=== PATIENT | male | born 1945 | race Asian ===

== ENCOUNTER 2020-09-26 10:48 | Outpatient (REF) | payer OTHER, SELFPAY ==
[2020-09-26 14:44] LABS: Alanine Aminotransferase 37 U/L (0-40); Albumin Level 4.5 g/dL (3.5-5.0); Alkaline Phosphatase 61 U/L (39-117); Anion Gap 16 (12-20); Aspartate Amino Transferase 32 U/L (5-37); Bilirubin Total 1.3 mg/dL (0.0-1.0); Blood Urea Nitrogen 15 mg/dL (9-16); Calcium 9.4 mg/dL (8.4-10.2); Carbon Dioxide 26 mmol/L (22-29); Chloride 103 mmol/L (96-108); Estimated Glomerular Filt Rate > 60; Glucose Random 107 mg/dL (60-115); Potassium 4.1 mmol/L (3.3-5.1); Sodium 141 mmol/L (135-145); Total Protein 8.3 g/dL (6.5-8.0)
== END 2020-09-26 10:49 | disposition home or self-care (01) ==
LOC: HO.HMGCLDS 10:48
PROVIDERS: PCP Internal Medicine; Visit Provider Internal Medicine
DX: I10 Essential (primary) hypertension (principal); E78.9 Disorder of lipoprotein metabolism, unspecified; R79.89 Other specified abnormal findings of blood chemistry; Z91.09 Other allergy status, other than to drugs and biological substances
CPT/HCPCS: 36415; 80053

== ENCOUNTER 2021-03-28 06:39 | Outpatient (REF) | payer OTHER, SELFPAY ==
[2021-03-28 11:23] LABS: MANUAL DIFF FLAG NO
[2021-03-28 11:31] LABS: Basophils Percent Auto 0.4 % (0-2); Eosinophils Absolute Auto 0.2 X10*3/uL (0.0-0.4); Eosinophils Percent Auto 2.7 % (0-4); Hematocrit 40.9 % (42-52); Hemoglobin 13.4 g/dl (14.0-18.0); Imm Gran Abs Auto 0.01 X10*3/uL (0.00-0.03); Imm Gran Pct Auto 0.1 % (0.0-0.4); Lymphocytes Absolute Auto 1.7 X10*3/uL (1.2-4.9); Mean Corpuscular HGB Conc 32.8 g/dl (31.0-36.0); Mean Corpuscular Hemoglobin 30.2 pg (27.0-33.0); Mean Corpuscular Volume 92.1 fL (80-98); Mean Platelet Volume 9.5 fL (9.4-12.4); Monocytes Absolute Auto 0.6 X10*3/uL (0.1-1.2); Monocytes Percent Auto 9.2 % (2-11); Neutrophils Absolute Auto 4.4 X10*3/uL (2.0-8.3); Neutrophils Percent Auto 62.6 % (45-73); Platelet Count 343 X10*3/uL (160-400); Red Blood Count 4.44 X10*6/uL (4.60-5.80); Red Cell Distribution Width 13.2 % (11.0-16.0)
[2021-03-28 11:55] LABS: Alanine Aminotransferase 17 U/L (0-40); Albumin Level 4.2 g/dL (3.5-5.0); Alkaline Phosphatase 53 U/L (39-117); Anion Gap 12 (12-20); Aspartate Amino Transferase 17 U/L (5-37); Blood Urea Nitrogen 18 mg/dL (9-16); Calcium 9.6 mg/dL (8.4-10.2); Carbon Dioxide 25 mmol/L (22-29); Chloride 105 mmol/L (96-108); Cholesterol 139 mg/dL; Estimated Glomerular Filt Rate > 60; Glucose Fasting 122 mg/dL (60-99); HDL Cholesterol 48 mg/dL; LDL Cholesterol Calculated 81 mg/dl; Potassium 4.2 mmol/L (3.3-5.1); Sodium 138 mmol/L (135-145); Total Protein 7.7 g/dL (6.5-8.0); Triglycerides 54 mg/dL
== END 2021-03-28 06:40 | disposition home or self-care (01) ==
LOC: HO.HMGCLDS 06:39
PROVIDERS: PCP Internal Medicine; Visit Provider Internal Medicine
DX: E78.9 Disorder of lipoprotein metabolism, unspecified (principal); I10 Essential (primary) hypertension; R79.89 Other specified abnormal findings of blood chemistry; Z91.09 Other allergy status, other than to drugs and biological substances
CPT/HCPCS: 36415; 80053; 80061; 85025

== ENCOUNTER 2022-01-22 15:20 | Outpatient (REF) | payer OTHER, SELFPAY ==
[2022-01-22 17:09] LABS: Alanine Aminotransferase 16 U/L (0-40); Albumin Level 4.2 g/dL (3.5-5.0); Alkaline Phosphatase 54 U/L (39-117); Anion Gap 10 (12-20); Aspartate Amino Transferase 21 U/L (5-37); Bilirubin Total 0.8 mg/dL (0.0-1.0); Blood Urea Nitrogen 28 mg/dL (9-16); Calcium 8.8 mg/dL (8.4-10.2); Carbon Dioxide 26 mmol/L (22-29); Chloride 104 mmol/L (96-108); Estimated Glomerular Filt Rate > 60; Glucose Random 91 mg/dL (60-115); Potassium 4.4 mmol/L (3.3-5.1); Sodium 136 mmol/L (135-145); Total Protein 7.7 g/dL (6.5-8.0)
== END 2022-01-22 15:21 | disposition home or self-care (01) ==
LOC: HO.HMGCLDS 15:20
PROVIDERS: PCP Internal Medicine; Visit Provider Internal Medicine
DX: I10 Essential (primary) hypertension (principal); E78.9 Disorder of lipoprotein metabolism, unspecified; Z91.09 Other allergy status, other than to drugs and biological substances
CPT/HCPCS: 36415; 80053

== ENCOUNTER 2022-08-02 08:29 | Outpatient (REF) | payer OTHER, SELFPAY ==
[2022-08-02 11:38] LABS: Alanine Aminotransferase 12 U/L (0-40); Albumin Level 4.2 g/dL (3.5-5.0); Alkaline Phosphatase 58 U/L (39-117); Anion Gap 11 (12-20); Aspartate Amino Transferase 15 U/L (5-37); Bilirubin Total 0.9 mg/dL (0.0-1.0); Blood Urea Nitrogen 22 mg/dL (9-16); Calcium 9.5 mg/dL (8.4-10.2); Carbon Dioxide 28 mmol/L (22-29); Chloride 103 mmol/L (96-108); Estimated Glomerular Filt Rate > 60; Glucose Random 162 mg/dL (60-115); Potassium 4.1 mmol/L (3.3-5.1); Sodium 138 mmol/L (135-145); Total Protein 7.8 g/dL (6.5-8.0)
[2022-08-04 07:54] LABS: LDL Cholesterol Direct 102 mg/dL (<100)
== END 2022-08-02 08:30 | disposition home or self-care (01) ==
LOC: HO.HMGCLDS 08:29
PROVIDERS: Visit Provider Internal Medicine
DX: E78.9 Disorder of lipoprotein metabolism, unspecified (principal); I10 Essential (primary) hypertension; R79.89 Other specified abnormal findings of blood chemistry; Z91.09 Other allergy status, other than to drugs and biological substances
CPT/HCPCS: 36415; 80053; 83721

== ENCOUNTER 2023-03-04 10:38 | Outpatient (AMB) | payer OTHER, SELFPAY ==
--- NOTE | 2023-03-04 10:39 | MHC.PC.OV ---
Vital Signs 03/04/23 10:43 Height 5 ft 7 in Weight 160 lb 8 oz BMI 25.1 BP 132/68 Blood Pressure Location Lt brachial Position Sitting Pulse 63 Pulse Source Pulse Oximeter Pulse Oximetry (%) 96 Oxygen Delivery Method Room Air Intake Visit Reasons: 3 Month follow up Allergies No Known Allergies Allergy (Verified 03/04/23 10:46) Medication List - Last Reconciled 03/04/23 by Lora Rojo MD aspirin 81 mg PO DAILY 90 days lisinopril 40 mg PO DAILY 90 days simvastatin 20 mg PO DAILY 90 days Tobacco use date assessed: 03/04/23 Fall risk assessment: No Falls in past year Last assessed Fall Risk: 03/04/23 Dental Screening Dental Screen Date: 03/04/23 Did you have a dental visit in the last 12 months?: No Did you have a dental problem in the last 6 months where you did not have access to dental care?: No Was dental information given to patient?: No HPI 3 Month follow up HPI Details Patient is 78 year-old male came in today for his regular follow-up appointment Patient is in his usual state health offer no new complaints Due for labs Hypertension: Blood pressure is stable, Continue lisinopril 40 mg Lipid disorder: Patient is on simvastatin 20 mg for lipid control. Patient is also on baby aspirin he is to continue that. Allergies are stable Follow-up 4 months [facility] Social History Housing: Apartment Patient Tobacco Use Status: Former Tobacco user Years Smoked: 1 yr e-Cigarette/Vaping Use: Never Used Current occupational status: retired Cognitive needs: No Hearing needs: No Vision needs: No Questionnaire PHQ-9 Over the last 2 weeks, how often have you been bothered by any of the following problems? 1. Little interest or pleasure in doing things: not at all 2. Feeling down, depressed, or hopeless: not at all 3. Trouble falling or staying asleep, or sleeping too much: not at all 4. Feeling tired or having little energy: not at all 5. Poor appetite or overeating: not at all 6. Feeling bad about yourself - or that you are a failure or have let yourself or your family down: not at all 7. Trouble concentrating on things, such as reading the newspaper or watching television: not at all 8. Moving or speaking so slowly that other people could have noticed. Or the opposite - being so fidgety or restless that you have been moving around a lot more than usual: not at all 9. Thoughts that you would be better off or of hurting yourself in some way: not at all Total score: 0 Depression Screening Interpretation: Negative 31202 - PHQ-9 Billing: Yes Source: Developed by Drs. Leandro Castillo, Mason Leon and colleagues, with an educational jonathan from [employer]. Thrive Questionnaire Date Thrive assessed: 03/04/23 I am a: Patient What is your living situation today?: I have a steady place to live Within the past 12 months, did the food you bought not last and you didn't have the money to get more?: Often true Within the past 12 months, did you worry whether your food would run out before you got money to buy more?: Often true Do you have trouble paying for medicines?: No Do you have trouble getting transportation to medical appointments?: No Do you have trouble paying your heating and electricity bill?: No Do you have trouble taking care of your child, family member or friend?: No Do you have trouble with day-to-day activities such as bathing, preparing meals, shopping, managing finances, etc.?: No Are you currently unemployed and looking for a job?: No Are you interested in more education?: No AUDIT C Alcohol Use Questionnaire (AUDIT-C) 1. How often do you have a drink containing alcohol?: Never 3. How often do you have six or more drinks on one occasion?: Never Total Score: 0 Score Reviewed/Action Taken: Yes ISAMAR-7 AMB Questionnaire ISAMAR-7 Date ISAMAR - 7 assessed: 01/22/22 Source: Developed by Drs. Leandro Castillo, Mason Leon and colleagues, with an educational jonathan from [employer]. Review of Systems Const Denies chills and Denies fever(s) ENT Denies epistaxis and Denies nasal discharge Card Denies chest pain Resp Denies chest congestion, Denies cough and Denies hemoptysis GI Denies diarrhea and Denies nausea Skin/Breast Denies rash Neuro Reports no additional complaints Psych Reports no additional complaints Endo Reports no additional complaints Physical exam (Primary Care) Vital Signs: Last Vital Signs Pulse 63 03/04/23 10:43 BP 132/68 03/04/23 10:43 Pulse Ox 96 03/04/23 10:43 Oxygen Delivery Method Room Air 03/04/23 10:43 BMI result Body Mass Index 25.1 Tobacco/Smoking Status: Tobacco use Status Tobacco use date assessed 03/04/23 03/04/23 10:48 Patient Tobacco Use Status Former Tobacco user 03/04/23 10:41 e-Cigarette/Vaping Use Never Used 03/04/23 10:41 PHQ-9: PHQ-9 Score PHQ-9: Total score 0 03/04/23 11:12 Depression Screening Interpretation: Negative Thrive Assessment: Date of Thrive Assessment Date Thrive assessed 03/04/23 03/04/23 11:07 Const General: cooperative, comfortable and no acute distress Orientation/consciousness: patient oriented x3 HENMT Head: Yes normocephalic Eyes General: appearance normal, both eyes and all related structures Neck Neck: Yes supple Resp Effort & Inspection: normal respiratory effort, no cough and no stridor Cardio Rhythm: regular rhythm Heart sounds: S1 normal heart sound present and S2 normal heart sound present Skin General skin exam: turgor normal Neuro General: patient oriented x3, tone normal and moves all extremities Extrem Right lower extremity: no edema Left lower extremity: no edema Assessment and Plan Assessment & Plan (1) Hypertension, essential: Code(s): I10 - Essential (primary) hypertension (2) Lipid disorder: Code(s): E78.9 - Disorder of lipoprotein metabolism, unspecified (3) Environmental allergies: Code(s): Z91.09 - Other allergy status, other than to drugs and biological substances (4) LFT elevation: Code(s): R79.89 - Other specified abnormal findings of blood chemistry Plan Patient is 78 year-old male came in today for his regular follow-up appointment Patient is in his usual state health offer no new complaints Due for labs Hypertension: Blood pressure is stable, Continue lisinopril 40 mg Lipid disorder: Patient is on simvastatin 20 mg for lipid control. Patient is also on baby aspirin he is to continue that. Allergies are stable Follow-up 4 months Orders: Orders Comprehensive Met. Panel Today E78.9 - Disorder of lipoprotein metabolism, unspecified, I10 - Essential (primary) hypertension, R79.89 - Other specified abnormal findings of blood chemistry, Z91.09 - Other allergy status, other than to drugs and biological substances Complete Blood Count Auto Diff Today E78.9 - Disorder of lipoprotein metabolism, unspecified, I10 - Essential (primary) hypertension, R79.89 - Other specified abnormal findings of blood chemistry, Z91.09 - Other allergy status, other than to drugs and biological substances LDL Cholesterol Direct Today E78.9 - Disorder of lipoprotein metabolism, unspecified Coding Level of Care Code Est Pt Level 3 (91890) Diagnoses Hypertension, essential I10 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 Environmental allergies Z91.09 LFT elevation R79.89
[2023-03-04 10:43] VITALS: BP 132/68; PULSE 63; O2SAT 96; BMI 25.1
== END 2023-03-04 12:12 | disposition home or self-care (01) ==
PROVIDERS: Visit Provider Internal Medicine
DX: I10 Essential (primary) hypertension (principal); E78.9 Disorder of lipoprotein metabolism, unspecified; Z91.09 Other allergy status, other than to drugs and biological substances; R79.89 Other specified abnormal findings of blood chemistry
CPT/HCPCS: 99213

== ENCOUNTER 2023-03-04 11:13 | Outpatient (REF) | payer OTHER, SELFPAY ==
[2023-03-04 13:48] LABS: MANUAL DIFF FLAG NO
[2023-03-04 13:51] LABS: Basophils Percent Auto 0.4 % (0-2); Eosinophils Absolute Auto 0.1 X10*3/uL (0.0-0.4); Eosinophils Percent Auto 1.8 % (0-4); Hematocrit 43.7 % (42.0-52.0); Hemoglobin 14.4 g/dl (14.0-18.0); Imm Gran Abs Auto 0.01 X10*3/uL (0.00-0.03); Imm Gran Pct Auto 0.1 % (0.0-0.4); Lymphocytes Percent Auto 29.3 % (20-40); Mean Corpuscular Hemoglobin 29.8 pg (27.0-33.0); Mean Corpuscular Volume 90.3 fL (80.0-98.0); Mean Platelet Volume 9.7 fL (9.4-12.4); Monocytes Absolute Auto 0.5 X10*3/uL (0.1-1.2); Monocytes Percent Auto 7.7 % (2-11); Neutrophils Absolute Auto 4.1 x10*3/uL (2.0-8.3); Neutrophils Percent Auto 60.7 % (45-73); Platelet Count 357 X10*3/uL (160-400); Red Blood Count 4.84 X10*6/uL (4.60-5.80); Red Cell Distribution Width 13.6 % (11.0-16.0); White Blood Count 6.7 X10*3/uL (4.8-10.8)
[2023-03-04 14:03] LABS: Alanine Aminotransferase 12 U/L (0-40); Albumin Level 4.4 g/dL (3.5-5.0); Alkaline Phosphatase 55 U/L (39-117); Anion Gap 11 (12-20); Aspartate Amino Transferase 20 U/L (5-37); Blood Urea Nitrogen 19 mg/dL (9-16); Calcium 9.7 mg/dL (8.4-10.2); Carbon Dioxide 29 mmol/L (22-29); Chloride 107 mmol/L (96-108); Estimated Glomerular Filt Rate > 60; Glucose Random 143 mg/dL (60-115); Potassium 4.9 mmol/L (3.3-5.1); Sodium 142 mmol/L (135-145); Total Protein 8.2 g/dL (6.5-8.0)
[2023-03-05 16:59] LABS: LDL Cholesterol Direct 84 mg/dL (<100)
== END 2023-03-04 11:14 | disposition home or self-care (01) ==
LOC: HO.HMGCLDS 11:13
PROVIDERS: PCP Internal Medicine; Visit Provider Internal Medicine
DX: I10 Essential (primary) hypertension (principal); E78.9 Disorder of lipoprotein metabolism, unspecified; R79.89 Other specified abnormal findings of blood chemistry; Z91.09 Other allergy status, other than to drugs and biological substances
CPT/HCPCS: 36415; 80053; 83721; 85025

== ENCOUNTER 2023-06-20 09:27 | Outpatient (AMB) | payer OTHER, SELFPAY ==
[2023-06-20 09:27] VITALS: BP 152/74; PULSE 69; O2SAT 96; BMI 25.7
--- NOTE | 2023-06-20 09:27 | A.OFFPC_ITS ---
Vital Signs 06/20/23 09:27 Height 5 ft 7 in Weight 164 lb BMI 25.7 BP 152/74 H Blood Pressure Location Rt brachial Position Sitting Pulse 69 Pulse Source Pulse Oximeter Pulse Oximetry (%) 96 Oxygen Delivery Method Room Air Intake Visit Reasons: 4 Month follow up Allergies No Known Allergies Allergy (Verified 06/20/23 09:30) Medication List - Last Reconciled 06/20/23 by Lora Rojo MD aspirin 81 mg PO DAILY 90 days lisinopril 40 mg PO DAILY 90 days simvastatin 20 mg PO DAILY 90 days Tobacco use date assessed: 06/20/23 Fall risk assessment: No Falls in past year Last assessed Fall Risk: 06/20/23 Dental Screening Dental Screen Date: 06/20/23 Did you have a dental visit in the last 12 months?: Yes Did you have a dental problem in the last 6 months where you did not have access to dental care?: No Was dental information given to patient?: Patient has dentist HPI 4 Month follow up HPI Details Patient is 78 year-old male came in today for his regular follow-up appointment His blood pressure is elevated today as patient was rushing to come Also tells me that he has been taking only 20 mg lisinopril as pharmacy did not give 40 mg I have sent a new script for the patient Lipid disorder: Patient is on simvastatin 20 mg for lipid control. Patient is also on baby aspirin he is to continue that. Allergies are stable Multiple joint osteoarthritis, requesting script for Tylenol which I have sent with the patient Labs to be done before next visit Follow-up 4 months [facility] Social History Housing: Apartment Patient Tobacco Use Status: Former Tobacco user Years Smoked: 1 yr e-Cigarette/Vaping Use: Never Used service: No Current occupational status: retired Cognitive needs: No Hearing needs: No Vision needs: No Questionnaire PHQ-9 Over the last 2 weeks, how often have you been bothered by any of the following problems? 1. Little interest or pleasure in doing things: not at all 2. Feeling down, depressed, or hopeless: not at all 3. Trouble falling or staying asleep, or sleeping too much: not at all 4. Feeling tired or having little energy: not at all 5. Poor appetite or overeating: not at all 6. Feeling bad about yourself - or that you are a failure or have let yourself or your family down: not at all 7. Trouble concentrating on things, such as reading the newspaper or watching television: not at all 8. Moving or speaking so slowly that other people could have noticed. Or the opposite - being so fidgety or restless that you have been moving around a lot more than usual: not at all 9. Thoughts that you would be better off or of hurting yourself in some way: not at all Total score: 0 Depression Screening Interpretation: Negative Depression Screening Done: Yes 57131 - PHQ-9 Billing: Yes Source: Developed by Drs. Leandro Castillo, Rosa Smith, Mason Banda and colleagues, with an educational jonathan from [employer]. Thrive Questionnaire Date Thrive assessed: 03/04/23 AUDIT C Alcohol Use Questionnaire (AUDIT-C) 1. How often do you have a drink containing alcohol?: Never 3. How often do you have six or more drinks on one occasion?: Never Total Score: 0 Score Reviewed/Action Taken: Yes ISAMAR-7 AMB Questionnaire ISAMAR-7 Date ISAMAR - 7 assessed: 06/20/23 Feeling nervous, anxious, or on edge: 0 = Not at all Not being able to stop or control worryin = Not at all Worrying too much about different things: 0 = Not at all Trouble relaxin = Not at all Being so restless that it is hard to sit still: 0 = Not at all Becoming easily annoyed or irritable: 0 = Not at all Feeling afraid as if something awful might happen: 0 = Not at all Total ISAMAR-7 score (0-4 normal; 5-9 mild; 10-14 moderate; 15-21 severe): 0 Source: Developed by Drs. Leandro Castillo, Rosa Smith, Mason Banda and colleagues, with an educational jonathan from [employer]. ISAMAR-7 Assessment Billing ISAMAR-7 Assessment Tool: ISAMAR-7 Assessment 14952 Review of Systems Const Denies chills and Denies fever(s) ENT Denies epistaxis and Denies nasal discharge Card Denies chest pain Resp Denies chest congestion, Denies cough and Denies hemoptysis GI Denies diarrhea and Denies nausea Skin/Breast Denies rash Neuro Reports no additional complaints Psych Reports no additional complaints Endo Reports no additional complaints Physical exam (Primary Care) Vital Signs: Last Vital Signs Pulse 69 06/20/23 09:27 BP 152/74 H 06/20/23 09:27 Pulse Ox 96 06/20/23 09:27 Oxygen Delivery Method Room Air 06/20/23 09:27 BMI result Body Mass Index 25.7 Tobacco/Smoking Status: Tobacco use Status Tobacco use date assessed 06/20/23 06/20/23 09:30 Patient Tobacco Use Status Former Tobacco user 06/20/23 09:30 e-Cigarette/Vaping Use Never Used 06/20/23 09:30 PHQ-9: PHQ-9 Score PHQ-9: Total score 0 06/20/23 09:46 Depression Screening Interpretation: Negative Thrive Assessment: Date of Thrive Assessment Date Thrive assessed 03/04/23 06/20/23 09:30 Const General: cooperative, comfortable and no acute distress Orientation/consciousness: patient oriented x3 HENMT Head: Yes normocephalic Eyes General: appearance normal, both eyes and all related structures Neck Neck: Yes supple Resp Effort & Inspection: normal respiratory effort, no cough and no stridor Cardio Rhythm: regular rhythm Heart sounds: S1 normal heart sound present and S2 normal heart sound present Skin General skin exam: turgor normal Neuro General: patient oriented x3, tone normal and moves all extremities Extrem Right lower extremity: no edema Left lower extremity: no edema Assessment and Plan Assessment & Plan (1) Hypertension, essential: Code(s): I10 - Essential (primary) hypertension (2) Lipid disorder: Code(s): E78.9 - Disorder of lipoprotein metabolism, unspecified (3) Environmental allergies: Code(s): Z91.09 - Other allergy status, other than to drugs and biological substances (4) LFT elevation: Code(s): R79.89 - Other specified abnormal findings of blood chemistry (5) Osteoarthritis involving multiple joints on both sides of body: Code(s): M15.9 - Polyosteoarthritis, unspecified Plan Patient is 78 year-old male came in today for his regular follow-up appointment His blood pressure is elevated today as patient was rushing to come Also tells me that he has been taking only 20 mg lisinopril as pharmacy did not give 40 mg I have sent a new script for the patient Lipid disorder: Patient is on simvastatin 20 mg for lipid control. Patient is also on baby aspirin he is to continue that. Allergies are stable Multiple joint osteoarthritis, requesting script for Tylenol which I have sent with the patient Labs to be done before next visit Follow-up 4 months Orders: Orders Complete Blood Count Auto Diff Today E78.9 - Disorder of lipoprotein metabolism, unspecified, I10 - Essential (primary) hypertension, M15.9 - Polyosteoarthritis, unspecified, R79.89 - Other specified abnormal findings of blood chemistry, Z91.09 - Other allergy status, other than to drugs and biological substances Comprehensive [place]. Panel Fast Today E78.9 - Disorder of lipoprotein metabolism, unspecified, I10 - Essential (primary) hypertension, M15.9 - Polyosteoarthritis, unspecified, R79.89 - Other specified abnormal findings of blood chemistry, Z91.09 - Other allergy status, other than to drugs and biological substances Lipid Panel Today E78.9 - Disorder of lipoprotein metabolism, unspecified, I10 - Essential (primary) hypertension, M15.9 - Polyosteoarthritis, unspecified, R79.89 - Other specified abnormal findings of blood chemistry, Z91.09 - Other allergy status, other than to drugs and biological substances Medications: New acetaminophen (Tylenol Extra Strength) 500 mg PO BID PRN 180 ea 1RF Joint pains 90 days Refilled lisinopril 40 mg PO DAILY 90 tabs 1RF 90 days aspirin 81 mg PO DAILY 90 tabs 3RF 90 days simvastatin 20 mg PO DAILY 90 days 90 tabs 1RF Coding Level of Care Code Est Pt Level 4 (58391) Diagnoses Hypertension, essential I10 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 Environmental allergies Z91.09 LFT elevation R79.89 Osteoarthritis involving multiple joints on both sides of body M15.9 Additional Codes ISAMAR-7 Assessment Billing - ISAMAR-7 Assessment Tool: ISAMAR-7 Assessment [id number] ([id number])
== END 2023-06-20 10:57 | disposition home or self-care (01) ==
LOC: HO.HMGC 09:27
PROVIDERS: PCP Internal Medicine; Visit Provider Internal Medicine
DX: I10 Essential (primary) hypertension (principal); E78.9 Disorder of lipoprotein metabolism, unspecified; Z91.09 Other allergy status, other than to drugs and biological substances; R79.89 Other specified abnormal findings of blood chemistry; M15.9 Polyosteoarthritis, unspecified
CPT/HCPCS: 99214

== ENCOUNTER 2024-01-09 09:32 | Outpatient (AMB) | payer OTHER, SELFPAY ==
--- NOTE | 2024-01-09 09:35 | MHC.PC.OV ---
Vital Signs 01/09/24 09:37 Height 5 ft 7 in Weight 158 lb BMI 24.7 BP 140/76 H Blood Pressure Location Rt brachial Position Sitting Pulse 66 Pulse Source Pulse Oximeter Pulse Oximetry (%) 95 Oxygen Delivery Method Room Air Intake Visit Reasons: F/Vernell MEDINA Allergies No Known Allergies Allergy (Verified 06/20/23 09:30) Medication List - Last Reconciled 01/09/24 by Lora Rojo MD acetaminophen (Tylenol Extra Strength) 500 mg PO BID PRN 90 days aspirin 81 mg PO DAILY 90 days lisinopril 40 mg PO DAILY 90 days simvastatin 20 mg PO DAILY 90 days Tobacco use date assessed: 01/09/24 Fall risk assessment: No Falls in past year Last assessed Fall Risk: 01/09/24 Dental Screening Dental Screen Date: 01/09/24 Did you have a dental visit in the last 12 months?: Yes Did you have a dental problem in the last 6 months where you did not have access to dental care?: No Was dental information given to patient?: Patient has dentist HPI F/U RADHA MEDINA HPI Details Patient is 78 year-old male came in today for his regular follow-up appointment Blood pressure has been running fine at 120 systolic Usually when patient comes to doctor's office his blood pressure is slightly elevated Taking 40 mg lisinopril Lipid disorder: Patient is on simvastatin 20 mg for lipid control. Patient is also on baby aspirin he is to continue that. Allergies are stable Multiple joint osteoarthritis, requesting script for Tylenol which I have sent with the patient Labs are due Follow-up 4 months [facility] Social History Housing: Apartment Patient Tobacco Use Status: Former Tobacco user Years Smoked: 1 yr e-Cigarette/Vaping Use: Never Used service: No Current occupational status: retired Cognitive needs: No Hearing needs: No Vision needs: No Questionnaire PHQ-9 Over the last 2 weeks, how often have you been bothered by any of the following problems? 1. Little interest or pleasure in doing things: not at all 2. Feeling down, depressed, or hopeless: not at all 3. Trouble falling or staying asleep, or sleeping too much: not at all 4. Feeling tired or having little energy: not at all 5. Poor appetite or overeating: not at all 6. Feeling bad about yourself - or that you are a failure or have let yourself or your family down: not at all 7. Trouble concentrating on things, such as reading the newspaper or watching television: not at all 8. Moving or speaking so slowly that other people could have noticed. Or the opposite - being so fidgety or restless that you have been moving around a lot more than usual: not at all 9. Thoughts that you would be better off or of hurting yourself in some way: not at all Total score: 0 Depression Screening Interpretation: Negative Depression Screening Done: Yes 51319 - PHQ-9 Billing: Yes Source: Developed by Drs. Leandro Castillo, Rosa Smith, Mason Banda and colleagues, with an educational jonathan from [employer]. Thrive Questionnaire Date Thrive assessed: 03/04/23 ISAMAR-7 AMB Questionnaire ISAMAR-7 Date ISAMAR - 7 assessed: 06/20/23 Source: Developed by Drs. Leandro Castillo, Rosa Smith, Mason Banda and colleagues, with an educational jonathan from [employer]. Review of Systems Const Denies chills and Denies fever(s) ENT Denies epistaxis and Denies nasal discharge Card Denies chest pain Resp Denies chest congestion, Denies cough and Denies hemoptysis GI Denies diarrhea and Denies nausea Skin/Breast Denies rash Neuro Reports no additional complaints Psych Reports no additional complaints Endo Reports no additional complaints Physical exam (Primary Care) Vital Signs: Last Vital Signs Pulse 66 01/09/24 09:37 BP 140/76 H 01/09/24 09:37 Pulse Ox 95 01/09/24 09:37 Oxygen Delivery Method Room Air 01/09/24 09:37 BMI result Body Mass Index 24.7 Tobacco/Smoking Status: Tobacco use Status Tobacco use date assessed 01/09/24 01/09/24 09:38 Patient Tobacco Use Status Former Tobacco user 01/09/24 09:37 e-Cigarette/Vaping Use Never Used 01/09/24 09:37 Depression Screening Interpretation: Negative Thrive Assessment: Date of Thrive Assessment Date Thrive assessed 03/04/23 01/09/24 09:37 Const General: cooperative, comfortable and no acute distress Orientation/consciousness: patient oriented x3 HENMT Head: Yes normocephalic Eyes General: appearance normal, both eyes and all related structures Neck Neck: Yes supple Resp Effort & Inspection: normal respiratory effort, no cough and no stridor Cardio Rhythm: regular rhythm Heart sounds: S1 normal heart sound present and S2 normal heart sound present Skin General skin exam: turgor normal Neuro General: patient oriented x3, tone normal and moves all extremities Extrem Right lower extremity: no edema Left lower extremity: no edema Assessment and Plan Assessment & Plan (1) Hypertension, essential: Code(s): I10 - Essential (primary) hypertension (2) Lipid disorder: Code(s): E78.9 - Disorder of lipoprotein metabolism, unspecified (3) Environmental allergies: Code(s): Z91.09 - Other allergy status, other than to drugs and biological substances (4) LFT elevation: Code(s): R79.89 - Other specified abnormal findings of blood chemistry (5) Osteoarthritis involving multiple joints on both sides of body: Code(s): M15.9 - Polyosteoarthritis, unspecified Plan Patient is 78 year-old male came in today for his regular follow-up appointment Blood pressure has been running fine at 120 systolic Usually when patient comes to doctor's office his blood pressure is slightly elevated Taking 40 mg lisinopril Lipid disorder: Patient is on simvastatin 20 mg for lipid control. Patient is also on baby aspirin he is to continue that. Allergies are stable Multiple joint osteoarthritis, requesting script for Tylenol which I have sent with the patient Labs are due Follow-up 4 months Orders: Orders Complete Blood Count Auto Diff Today E78.9 - Disorder of lipoprotein metabolism, unspecified, I10 - Essential (primary) hypertension, M15.9 - Polyosteoarthritis, unspecified, R79.89 - Other specified abnormal findings of blood chemistry, Z91.09 - Other allergy status, other than to drugs and biological substances Complete Blood Count Auto Diff 4 Months E78.9 - Disorder of lipoprotein metabolism, unspecified, I10 - Essential (primary) hypertension, M15.9 - Polyosteoarthritis, unspecified, R79.89 - Other specified abnormal findings of blood chemistry, Z91.09 - Other allergy status, other than to drugs and biological substances Comprehensive [place]. Panel Fast Today E78.9 - Disorder of lipoprotein metabolism, unspecified, I10 - Essential (primary) hypertension, M15.9 - Polyosteoarthritis, unspecified, R79.89 - Other specified abnormal findings of blood chemistry, Z91.09 - Other allergy status, other than to drugs and biological substances Lipid Panel Today E78.9 - Disorder of lipoprotein metabolism, unspecified, I10 - Essential (primary) hypertension, M15.9 - Polyosteoarthritis, unspecified, R79.89 - Other specified abnormal findings of blood chemistry, Z91.09 - Other allergy status, other than to drugs and biological substances Comprehensive [place]. Panel Fast 4 Months E78.9 - Disorder of lipoprotein metabolism, unspecified, I10 - Essential (primary) hypertension, M15.9 - Polyosteoarthritis, unspecified, R79.89 - Other specified abnormal findings of blood chemistry, Z91.09 - Other allergy status, other than to drugs and biological substances Lipid Panel 4 Months E78.9 - Disorder of lipoprotein metabolism, unspecified, I10 - Essential (primary) hypertension, M15.9 - Polyosteoarthritis, unspecified, R79.89 - Other specified abnormal findings of blood chemistry, Z91.09 - Other allergy status, other than to drugs and biological substances Coding Level of Care Code Est Pt Level 4 (18534) Complex EM visit Add On G2211 Diagnoses Hypertension, essential I10 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 Environmental allergies Z91.09 LFT elevation R79.89 Osteoarthritis involving multiple joints on both sides of body M15.9
[2024-01-09 09:37] VITALS: BP 140/76; PULSE 66; O2SAT 95; BMI 24.7
== END 2024-01-09 10:07 | disposition home or self-care (01) ==
PROVIDERS: PCP Internal Medicine; Visit Provider Internal Medicine
DX: I10 Essential (primary) hypertension (principal); E78.9 Disorder of lipoprotein metabolism, unspecified; Z91.09 Other allergy status, other than to drugs and biological substances; R79.89 Other specified abnormal findings of blood chemistry; M15.9 Polyosteoarthritis, unspecified
CPT/HCPCS: 99214; G2211

== ENCOUNTER 2024-01-10 10:05 | Outpatient (REF) | payer OTHER, SELFPAY ==
[2024-01-10 10:57] LABS: MANUAL DIFF FLAG NO
[2024-01-10 11:02] LABS: Basophils Percent Auto 0.5 % (0-2); Eosinophils Absolute Auto 0.2 X10*3/uL (0.0-0.4); Eosinophils Percent Auto 2.3 % (0-4); Hematocrit 41.6 % (42.0-52.0); Hemoglobin 14.3 g/dl (14.0-18.0); Imm Gran Abs Auto 0.02 X10*3/uL (0.00-0.03); Imm Gran Pct Auto 0.3 % (0.0-0.4); Lymphocytes Absolute Auto 2.2 X10*3/uL (1.2-4.9); Lymphocytes Percent Auto 32.6 % (20-40); Mean Corpuscular HGB Conc 34.4 g/dl (31.0-36.0); Mean Corpuscular Hemoglobin 30.2 pg (27.0-33.0); Mean Corpuscular Volume 87.8 fL (80.0-98.0); Mean Platelet Volume 9.4 fL (9.4-12.4); Monocytes Absolute Auto 0.7 X10*3/uL (0.1-1.2); Neutrophils Absolute Auto 3.6 x10*3/uL (2.0-8.3); Neutrophils Percent Auto 54.3 % (45-73); Platelet Count 327 X10*3/uL (160-400); Red Blood Count 4.74 X10*6/uL (4.60-5.80); Red Cell Distribution Width 13.3 % (11.0-16.0); White Blood Count 6.6 X10*3/uL (4.8-10.8)
[2024-01-10 11:21] LABS: Alanine Aminotransferase 21 U/L (0-40); Albumin Level 4.2 g/dL (3.5-5.0); Alkaline Phosphatase 53 U/L (39-117); Anion Gap 12 (12-20); Aspartate Amino Transferase 25 U/L (5-37); Bilirubin Total 0.9 mg/dL (0.0-1.0); Blood Urea Nitrogen 17 mg/dL (9-16); Calcium 9.3 mg/dL (8.4-10.2); Carbon Dioxide 28 mmol/L (22-29); Chloride 105 mmol/L (96-108); Cholesterol 162 mg/dL (<200); Estimated Glomerular Filt Rate > 60; Glucose Fasting 117 mg/dL (60-99); HDL Cholesterol 50 mg/dL (>40); LDL Cholesterol Calculated 87 mg/dL (<100); Sodium 141 mmol/L (135-145); Total Protein 7.8 g/dL (6.5-8.0); Triglycerides 126 mg/dL (<150)
== END 2024-01-10 10:06 | disposition home or self-care (01) ==
LOC: HO.HMGCLDS 10:05
PROVIDERS: PCP Internal Medicine; Visit Provider Internal Medicine
DX: I10 Essential (primary) hypertension (principal); E78.9 Disorder of lipoprotein metabolism, unspecified; Z91.09 Other allergy status, other than to drugs and biological substances; R79.89 Other specified abnormal findings of blood chemistry; M15.9 Polyosteoarthritis, unspecified
CPT/HCPCS: 36415; 80053; 80061; 85025

== ENCOUNTER 2024-05-28 08:08 | Outpatient (AMB) | payer OTHER, SELFPAY ==
[2024-05-28 08:13] VITALS: BP 134/78; PULSE 61; O2SAT 93; BMI 25.5
--- NOTE | 2024-05-28 08:13 | MHC.PC.OV ---
Vital Signs 05/28/24 08:13 Height 5 ft 7 in Weight 163 lb 2 oz BMI 25.5 BP 134/78 Blood Pressure Location Rt brachial Position Sitting Pulse 61 Pulse Source Pulse Oximeter Pulse Oximetry (%) 93 Oxygen Delivery Method Room Air Intake Visit Reasons: PE Allergies No Known Allergies Allergy (Verified 05/28/24 08:17) Medication List - Last Reconciled 05/28/24 by Lora Rojo MD acetaminophen (Tylenol Extra Strength) 500 mg PO BID PRN 90 days aspirin 81 mg PO DAILY 90 days lisinopril 40 mg PO DAILY 90 days simvastatin 20 mg PO DAILY 90 days Tobacco use date assessed: 05/28/24 Fall risk assessment: No Falls in past year Last assessed Fall Risk: 05/28/24 Dental Screening Dental Screen Date: 05/28/24 Did you have a dental visit in the last 12 months?: Yes Did you have a dental problem in the last 6 months where you did not have access to dental care?: No Was dental information given to patient?: Patient has dentist HPI PE HPI Details 79-year-old male with history of elevated blood glucose presenting for a wellness and preventative care visit. The patient is at risk for developing cataracts and has a scheduled repeat colonoscopy that was due in 2022. Elevated fasting blood sugar recorded earlier in January necessitates further evaluation for diabetes risk. The patient also presents with hearing impairment which requires assessment. Overall health maintenance and preventative screenings are the primary focus, given the age-related risks and previous screenings. Problem list: Risk of Cataracts - Colorectal Cancer Screening due - Elevated Blood Glucose Levels - Hearing Impairment Blurring of vision The patient is advised of the potential for cataract development and the importance of regular eye examinations. An eye examination has been recommended to monitor for any signs of cataracts to ensure timely intervention if required., patient has been declining to do an eye exam all this years. But today he agrees. Referral created. Hyperglycemia noted on previous labs The patient's fasting glucose level was elevated as of January 2023. To assess risk for diabetes, a repeat fasting glucose test and HbA1c test are ordered to monitor glycemic control and to determine any interventions needed. Colorectal screening. The result of the 2017 colonoscopy was noted as clean. A repeat colonoscopy, which was due in 2022, is essential to continue screening for colorectal cancer, given his age. It is encouraged for completion to rule out any developments since the previous screening. however patient does not want to pursue that. Hearing impairment The patient exhibits signs of hearing impairment. A hearing test is arranged to assess the severity of impairment. The patient is made aware that hearing aids may be needed if the test results indicate significant hearing loss. Potential coverage of aids by insurance was discussed. Blood pressure is stable Medication list reviewed refills sent Patient failed tandem walk Follow-up 4 months [facility] Social History Housing: Apartment Patient Tobacco Use Status: Former Tobacco user Years Smoked: 1 yr e-Cigarette/Vaping Use: Never Used service: No Current occupational status: retired Cognitive needs: No Hearing needs: No Vision needs: No Questionnaire PHQ-9 Over the last 2 weeks, how often have you been bothered by any of the following problems? 1. Little interest or pleasure in doing things: not at all 2. Feeling down, depressed, or hopeless: not at all 3. Trouble falling or staying asleep, or sleeping too much: not at all 4. Feeling tired or having little energy: not at all 5. Poor appetite or overeating: not at all 6. Feeling bad about yourself - or that you are a failure or have let yourself or your family down: not at all 7. Trouble concentrating on things, such as reading the newspaper or watching television: not at all 8. Moving or speaking so slowly that other people could have noticed. Or the opposite - being so fidgety or restless that you have been moving around a lot more than usual: not at all 9. Thoughts that you would be better off or of hurting yourself in some way: not at all Total score: 0 Depression Screening Interpretation: Negative Depression Screening Done: Yes 19887 - PHQ-9 Billing: Yes Source: Developed by Drs. Leandro Castillo, Rosa Smith, Mason Banda and colleagues, with an educational jonathan from [employer]. Thrive Questionnaire Date Thrive assessed: 05/28/24 I am a: Patient What is your living situation today?: I have a steady place to live Within the past 12 months, did the food you bought not last and you didn't have the money to get more?: Never true Within the past 12 months, did you worry whether your food would run out before you got money to buy more?: Never true Do you have trouble paying for medicines?: No Do you have trouble getting transportation to medical appointments?: No Do you have trouble paying your heating and electricity bill?: No Do you have trouble taking care of your child, family member or friend?: No Do you have trouble with day-to-day activities such as bathing, preparing meals, shopping, managing finances, etc.?: No Are you currently unemployed and looking for a job?: No Are you interested in more education?: No Please select the resources that you would like help with: None Currently or been in a relationship where the following occur: No concerns reported THRIVE Score: 0 AUDIT C Alcohol Use Questionnaire (AUDIT-C) 1. How often do you have a drink containing alcohol?: Never 3. How often do you have six or more drinks on one occasion?: Never Total Score: 0 Score Reviewed/Action Taken: Yes ISAMAR-7 AMB Questionnaire ISAMAR-7 Date ISAMAR - 7 assessed: 05/28/24 Feeling nervous, anxious, or on edge: 0 = Not at all Not being able to stop or control worryin = Not at all Worrying too much about different things: 0 = Not at all Trouble relaxin = Not at all Being so restless that it is hard to sit still: 0 = Not at all Becoming easily annoyed or irritable: 0 = Not at all Feeling afraid as if something awful might happen: 0 = Not at all Total ISAMAR-7 score (0-4 normal; 5-9 mild; 10-14 moderate; 15-21 severe): 0 Source: Developed by Drs. Leandro Castillo, Rosa Smith, Mason Banda and colleagues, with an educational jonathan from [employer]. ISAMAR-7 Assessment Billing ISAMAR-7 Assessment Tool: ISAMAR-7 Assessment 42599 Review of Systems Const Denies chills, Denies fever(s) and Denies headache(s) ENT Denies headache(s), Denies nasal discharge, Denies nasal obstruction, Denies odynophagia and Denies sinus pain Card Denies chest pain at rest and Denies chest pain with activity Resp Denies cough and Denies hemoptysis GI Denies diarrhea, Denies odynophagia, Denies vomiting and Denies hematemesis Reports as per HPI Musc Denies abnormal gait Skin/Breast Reports as per HPI Neuro Denies Neuro-related abnormal movements, Denies Abnormal speech present, Denies abnormal gait, Denies headache(s) and Denies Sensory deficit (Neuro) Psych Denies mood swings and Denies paranoia Endo Reports as per HPI Diaz/Lymph Reports as per HPI Aller/Immun Reports as per HPI Physical exam (Primary Care) Vital Signs: Last Vital Signs Pulse 61 05/28/24 08:13 BP 134/78 05/28/24 08:13 Pulse Ox 93 05/28/24 08:13 Oxygen Delivery Method Room Air 05/28/24 08:13 BMI result Body Mass Index 25.5 Tobacco/Smoking Status: Tobacco use Status Tobacco use date assessed 05/28/24 05/28/24 08:18 Patient Tobacco Use Status Former Tobacco user 05/28/24 08:14 e-Cigarette/Vaping Use Never Used 05/28/24 08:14 PHQ-9: PHQ-9 Score PHQ-9: Total score 0 05/28/24 08:18 Depression Screening Interpretation: Negative Thrive Assessment: Date of Thrive Assessment Date Thrive assessed 05/28/24 05/28/24 08:18 Currently or been in a relationship where the following occur: No concerns reported Const General: cooperative, comfortable and no acute distress Orientation/consciousness: patient oriented x3 HENMT Head: Yes normocephalic and Yes atraumatic Eyes General: appearance normal, both eyes and all related structures Pupils: Equal, round and reactive pupils present EOM: EOMs intact bilaterally Neck Neck: Yes supple and No lymphadenopathy Thyroid: Thyroid normal Resp Effort & Inspection: normal respiratory effort and able to speak in complete sentences Auscultation: clear to auscultation bilaterally Cardio Heart sounds: S1 normal heart sound present and S2 normal heart sound present GI Palpation (GI): Soft to palpation and nontender Auscultation: normal bowel sounds General: Yes no CVA tenderness Back/Spine/Pelvis Back: no CVA tenderness Skin General skin exam: elasticity normal and turgor normal Neuro General: patient oriented x3 and gait normal Cranial nerves: Yes Equal, round and reactive pupils present Speech: No Abnormal speech present Sensory Exam: No Sensory deficit (Neuro) Coordination: Romberg test negative Extrem General: Yes normal exam except as noted and No edema Coding Level of Care Code Est Pt Level 3 (17297) Est Pt Prev Care >65y(42950) Diagnoses Encounter for general adult medical examination with abnormal findings Z00.01 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 Hypertension, essential I10 Environmental allergies Z91.09 LFT elevation R79.89 Pre-diabetes R73.03 Blurring of vision H53.8 Hearing difficulty, unspecified laterality H91.90 Laterality: unspecified laterality Additional Codes ISAMAR-7 Assessment Billing - ISAMAR-7 Assessment Tool: ISAMAR-7 Assessment 17935 ([id number]) PHQ-9 - 03604 - PHQ-9 Billing: Yes ([id number]) Assessment & Plan Assessment & Plan (1) Encounter for general adult medical examination with abnormal findings: Code(s): Z00.01 - Encounter for general adult medical examination with abnormal findings Category: Medical (2) Lipid disorder: Code(s): E78.9 - Disorder of lipoprotein metabolism, unspecified Category: Medical (3) Hypertension, essential: Code(s): I10 - Essential (primary) hypertension Category: Medical (4) Environmental allergies: Code(s): Z91.09 - Other allergy status, other than to drugs and biological substances Category: Medical (5) LFT elevation: Code(s): R79.89 - Other specified abnormal findings of blood chemistry Category: Medical (6) Pre-diabetes: Code(s): R73.03 - Prediabetes Category: Medical (7) Blurring of vision: Code(s): H53.8 - Other visual disturbances Category: Medical (8) Difficulty hearing: Code(s): H91.90 - Unspecified hearing loss, unspecified ear Category: Medical Qualifiers: Laterality: unspecified laterality Qualified Code(s): H91.90 - Unspecified hearing loss, unspecified ear Plan 79-year-old male with history of elevated blood glucose presenting for a wellness and preventative care visit. The patient is at risk for developing cataracts and has a scheduled repeat colonoscopy that was due in 2022. Elevated fasting blood sugar recorded earlier in January necessitates further evaluation for diabetes risk. The patient also presents with hearing impairment which requires assessment. Overall health maintenance and preventative screenings are the primary focus, given the age-related risks and previous screenings. Problem list: Risk of Cataracts - Colorectal Cancer Screening due - Elevated Blood Glucose Levels - Hearing Impairment Blurring of vision The patient is advised of the potential for cataract development and the importance of regular eye examinations. An eye examination has been recommended to monitor for any signs of cataracts to ensure timely intervention if required., patient has been declining to do an eye exam all this years. But today he agrees. Referral created. Hyperglycemia noted on previous labs The patient's fasting glucose level was elevated as of January 2023. To assess risk for diabetes, a repeat fasting glucose test and HbA1c test are ordered to monitor glycemic control and to determine any interventions needed. Colorectal screening. The result of the 2018 colonoscopy was noted as clean. A repeat colonoscopy, which was due in 2022, is essential to continue screening for colorectal cancer, given his age. It is encouraged for completion to rule out any developments since the previous screening. however patient does not want to pursue that. Hearing impairment The patient exhibits signs of hearing impairment. A hearing test is arranged to assess the severity of impairment. The patient is made aware that hearing aids may be needed if the test results indicate significant hearing loss. Potential coverage of aids by insurance was discussed. Blood pressure is stable Medication list reviewed refills sent Patient failed tandem walk Follow-up 4 months Orders: Orders Complete Blood Count Auto Diff Today E78.9 - Disorder of lipoprotein metabolism, unspecified, I10 - Essential (primary) hypertension, R73.03 - Prediabetes, R79.89 - Other specified abnormal findings of blood chemistry, Z00.01 - Encounter for general adult medical examination with abnormal findings, Z91.09 - Other allergy status, other than to drugs and biological substances Lipid Panel Today E78.9 - Disorder of lipoprotein metabolism, unspecified, I10 - Essential (primary) hypertension, R73.03 - Prediabetes, R79.89 - Other specified abnormal findings of blood chemistry, Z00.01 - Encounter for general adult medical examination with abnormal findings, Z91.09 - Other allergy status, other than to drugs and biological substances Comprehensive [place]. Panel Fast Today E78.9 - Disorder of lipoprotein metabolism, unspecified, I10 - Essential (primary) hypertension, R73.03 - Prediabetes, R79.89 - Other specified abnormal findings of blood chemistry, Z00.01 - Encounter for general adult medical examination with abnormal findings, Z91.09 - Other allergy status, other than to drugs and biological substances Hemoglobin A1c Today E78.9 - Disorder of lipoprotein metabolism, unspecified, I10 - Essential (primary) hypertension, R73.03 - Prediabetes, R79.89 - Other specified abnormal findings of blood chemistry, Z00.01 - Encounter for general adult medical examination with abnormal findings, Z91.09 - Other allergy status, other than to drugs and biological substances Referrals Ophthalmology Referral H53.8 - Other visual disturbances Audiology Referral H91.90 - Unspecified hearing loss, unspecified ear Medications: Refilled acetaminophen (Tylenol Extra Strength) 500 mg PO BID PRN 180 ea 1RF Joint pains 90 days simvastatin 20 mg PO DAILY 90 tabs 1RF 90 days aspirin 81 mg PO DAILY 90 tabs 3RF 90 days lisinopril 40 mg PO DAILY 90 tabs 1RF 90 days
== END 2024-05-28 09:00 | disposition home or self-care (01) ==
PROVIDERS: PCP Internal Medicine; Visit Provider Internal Medicine
DX: Z00.00 Encounter for general adult medical examination without abnormal findings (principal); E78.9 Disorder of lipoprotein metabolism, unspecified; I10 Essential (primary) hypertension; Z91.09 Other allergy status, other than to drugs and biological substances; R73.03 Prediabetes; H53.8 Other visual disturbances; H91.93 Unspecified hearing loss, bilateral

== ENCOUNTER 2024-05-28 08:08 | Outpatient (REF) | payer OTHER, SELFPAY ==
[2024-05-28 10:11] LABS: MANUAL DIFF FLAG NO
[2024-05-28 10:20] LABS: Basophils Percent Auto 0.5 % (0-2); Eosinophils Absolute Auto 0.1 X10*3/uL (0.0-0.4); Eosinophils Percent Auto 1.7 % (0-4); Hematocrit 42.9 % (42.0-52.0); Imm Gran Abs Auto 0.01 X10*3/uL (0.00-0.03); Imm Gran Pct Auto 0.2 % (0.0-0.4); Lymphocytes Absolute Auto 2.2 X10*3/uL (1.2-4.9); Lymphocytes Percent Auto 34.7 % (20-40); Mean Corpuscular Hemoglobin 30.7 pg (27.0-33.0); Mean Corpuscular Volume 87.9 fL (80.0-98.0); Mean Platelet Volume 9.1 fL (9.4-12.4); Monocytes Absolute Auto 0.7 X10*3/uL (0.1-1.2); Monocytes Percent Auto 10.5 % (2-11); Neutrophils Absolute Auto 3.4 x10*3/uL (2.0-8.3); Neutrophils Percent Auto 52.4 % (45-73); Platelet Count 349 X10*3/uL (160-400); Red Blood Count 4.88 X10*6/uL (4.60-5.80); Red Cell Distribution Width 12.5 % (11.0-16.0); White Blood Count 6.5 X10*3/uL (4.8-10.8)
[2024-05-28 10:38] LABS: Estimated Average Glucose 126 mg/dL; Hemoglobin A1C 160.2875 umol/L
[2024-05-28 10:43] LABS: Alanine Aminotransferase 20 U/L (0-40); Albumin Level 4.3 g/dL (3.5-5.0); Alkaline Phosphatase 62 U/L (39-117); Anion Gap 10 (12-20); Aspartate Amino Transferase 27 U/L (5-37); Bilirubin Total 0.6 mg/dL (0.0-1.0); Blood Urea Nitrogen 19 mg/dL (9-16); Calcium 9.9 mg/dL (8.4-10.2); Carbon Dioxide 30 mmol/L (22-29); Chloride 104 mmol/L (96-108); Cholesterol 151 mg/dL (<200); Estimated Glomerular Filt Rate > 60; Glucose Fasting 114 mg/dL (60-99); HDL Cholesterol 36 mg/dL (>40); LDL Cholesterol Calculated 73 mg/dL (<100); Potassium 3.9 mmol/L (3.3-5.1); Sodium 140 mmol/L (135-145); Total Protein 8.3 g/dL (6.5-8.0); Triglycerides 213 mg/dL (<150)
== END 2024-05-28 08:09 | disposition home or self-care (01) ==
LOC: HO.HMGCLDS 08:08
PROVIDERS: PCP Internal Medicine; Visit Provider Internal Medicine
DX: Z00.01 Encounter for general adult medical examination with abnormal findings (principal); E78.9 Disorder of lipoprotein metabolism, unspecified; I10 Essential (primary) hypertension; Z91.09 Other allergy status, other than to drugs and biological substances; R79.89 Other specified abnormal findings of blood chemistry; R73.03 Prediabetes
CPT/HCPCS: 36415; 80053; 80061; 83036; 85025; 96127

== ENCOUNTER 2024-09-29 09:35 | Outpatient (AMB) | payer OTHER, SELFPAY ==
[2024-09-29 09:30] VITALS: BP 144/82; PULSE 66; RESP 16; TEMP 36.6; O2SAT 97; BMI 26.2
--- NOTE | 2024-09-29 09:30 | A.OFFPC_ITS ---
Vital Signs 09/29/24 09:30 Height 5 ft 7 in Weight 167 lb 2 oz BMI 26.2 BP 144/82 H Blood Pressure Location Lt brachial Position Sitting Respiration 16 Pulse 66 Pulse Source Pulse Oximeter Temp 98 F Temp Source Oral Pulse Oximetry (%) 97 Oxygen Delivery Method Room Air Intake Visit Reasons: 4 months follow up Allergies No Known Allergies Allergy (Verified 05/28/24 08:17) Medication List - Last Reconciled 09/29/24 by Lora Rojo MD acetaminophen (Tylenol Extra Strength) 500 mg PO BID PRN 90 days aspirin 81 mg PO DAILY 90 days lisinopril 40 mg PO DAILY 90 days simvastatin 20 mg PO DAILY 90 days Tobacco use date assessed: 09/29/24 Fall risk assessment: No Falls in past year Last assessed Fall Risk: 09/29/24 Dental Screening Dental Screen Date: 09/29/24 Did you have a dental visit in the last 12 months?: Yes Did you have a dental problem in the last 6 months where you did not have access to dental care?: No Was dental information given to patient?: Patient has dentist HPI 4 months follow up HPI Details Patient is a 79-year-old gentleman came in with his friend who is helping with the translation Pressure is slightly elevated today He has developed a synovial cyst right wrist dorsal aspect Patient uses his hands a lot doing different shots at home The cyst is not painful and he has no restriction of his wrist movement Patient declined to see an orthopedic for management Labs were done in May reviewed again New set of lab order placed to be done fasting He is taking lisinopril 40 mg for blood pressure Simvastatin 20 mg for lipid control and aspirin daily Patient will return in three-month for follow-up appointment [facility] Social History Housing: Apartment Patient Tobacco Use Status: Former Tobacco user Years Smoked: 1 yr e-Cigarette/Vaping Use: Never Used service: No Current occupational status: retired Cognitive needs: No Hearing needs: No Vision needs: No Questionnaire PHQ-9 Over the last 2 weeks, how often have you been bothered by any of the following problems? 46356 - PHQ-9 Billing: Patient declined-do not bill Source: Developed by Drs. Leandro Castillo, Rosa Smith, Mason Banda and colleagues, with an educational jonathan from [employer]. Thrive Questionnaire Date Thrive assessed: 09/29/24 I am a: Patient What is your living situation today?: I have a steady place to live Within the past 12 months, did the food you bought not last and you didn't have the money to get more?: Never true Within the past 12 months, did you worry whether your food would run out before you got money to buy more?: Never true Do you have trouble paying for medicines?: No Do you have trouble getting transportation to medical appointments?: No Do you have trouble paying your heating and electricity bill?: No Do you have trouble taking care of your child, family member or friend?: No Do you have trouble with day-to-day activities such as bathing, preparing meals, shopping, managing finances, etc.?: No Are you currently unemployed and looking for a job?: No Are you interested in more education?: No Please select the resources that you would like help with: None Currently or been in a relationship where the following occur: No concerns reported THRIVE Score: 0 AUDIT C Alcohol Use Questionnaire (AUDIT-C) 1. How often do you have a drink containing alcohol?: Never 3. How often do you have six or more drinks on one occasion?: Never Total Score: 0 Score Reviewed/Action Taken: Yes ISAMAR-7 AMB Questionnaire ISAMAR-7 Date ISAMAR - 7 assessed: 09/29/24 Feeling nervous, anxious, or on edge: 0 = Not at all Not being able to stop or control worryin = Not at all Worrying too much about different things: 0 = Not at all Trouble relaxin = Not at all Being so restless that it is hard to sit still: 0 = Not at all Becoming easily annoyed or irritable: 0 = Not at all Feeling afraid as if something awful might happen: 0 = Not at all Total ISAMAR-7 score (0-4 normal; 5-9 mild; 10-14 moderate; 15-21 severe): 0 Source: Developed by Drs. Leandro Castillo, Rosa Smith, Mason Banda and colleagues, with an educational jonathan from [employer]. ISAMAR-7 Assessment Billing ISAMAR-7 Assessment Tool: ISAMAR-7 Assessment 54633 Physical exam (Primary Care) Vital Signs: Last Vital Signs Temp 98 F 09/29/24 09:30 Pulse 66 09/29/24 09:30 Resp 16 09/29/24 09:30 BP 144/82 H 09/29/24 09:30 Pulse Ox 97 09/29/24 09:30 Oxygen Delivery Method Room Air 09/29/24 09:30 BMI result Body Mass Index 26.2 Tobacco/Smoking Status: Tobacco use Status Tobacco use date assessed 09/29/24 09/29/24 09:38 Patient Tobacco Use Status Former Tobacco user 09/29/24 09:32 e-Cigarette/Vaping Use Never Used 09/29/24 09:32 Thrive Assessment: Date of Thrive Assessment Date Thrive assessed 09/29/24 09/29/24 09:38 Currently or been in a relationship where the following occur: No concerns reported Coding Level of Care Code Est Pt Level 4 (26058) Diagnoses 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 Hypertension, essential I10 Environmental allergies Z91.09 Pre-diabetes R73.03 Synovial cyst of right wrist M71.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 Additional Codes ISAMAR-7 Assessment Billing - ISAMAR-7 Assessment Tool: ISAMAR-7 Assessment 20454 ([id number]) Assessment & Plan Assessment & Plan (1) Lipid disorder: Code(s): E78.9 - Disorder of lipoprotein metabolism, unspecified Category: Medical (2) Hypertension, essential: Code(s): I10 - Essential (primary) hypertension Category: Medical (3) Environmental allergies: Code(s): Z91.09 - Other allergy status, other than to drugs and biological substances Category: Medical (4) Pre-diabetes: Code(s): R73.03 - Prediabetes Category: Medical (5) Synovial cyst of right wrist: Code(s): M71.331 - Other bursal cyst, right wrist Category: Medical Plan Patient is a 79-year-old gentleman came in with his friend who is helping with the translation Pressure is slightly elevated today He has developed a synovial cyst right wrist dorsal aspect Patient uses his hands a lot doing different shots at home The cyst is not painful and he has no restriction of his wrist movement Patient declined to see an orthopedic for management Labs were done in May reviewed again New set of lab order placed to be done fasting He is taking lisinopril 40 mg for blood pressure Simvastatin 20 mg for lipid control and aspirin daily Allergies are stable Patient will return in three-month for follow-up appointment Orders: Orders Vitamin D 25-OH (D2 and D3) Today E78.9 - Disorder of lipoprotein metabolism, unspecified, I10 - Essential (primary) hypertension, M71.331 - Other bursal cyst, right wrist, R73.03 - Prediabetes, Z91.09 - Other allergy status, other than to drugs and biological substances Vitamin B12 Today E78.9 - Disorder of lipoprotein metabolism, unspecified, I10 - Essential (primary) hypertension, M71.331 - Other bursal cyst, right wrist, R73.03 - Prediabetes, Z91.09 - Other allergy status, other than to drugs and biological substances Complete Blood Count Auto Diff Today E78.9 - Disorder of lipoprotein metabolism, unspecified, I10 - Essential (primary) hypertension, M71.331 - Other bursal cyst, right wrist, R73.03 - Prediabetes, Z91.09 - Other allergy status, other than to drugs and biological substances Comprehensive [place]. Panel Fast Today E78.9 - Disorder of lipoprotein metabolism, unspecified, I10 - Essential (primary) hypertension, M71.331 - Other bursal cyst, right wrist, R73.03 - Prediabetes, Z91.09 - Other allergy status, other than to drugs and biological substances Lipid Panel Today E78.9 - Disorder of lipoprotein metabolism, unspecified, I10 - Essential (primary) hypertension, M71.331 - Other bursal cyst, right wrist, R73.03 - Prediabetes, Z91.09 - Other allergy status, other than to drugs and biological substances Hemoglobin A1c Today E78.9 - Disorder of lipoprotein metabolism, unspecified, I10 - Essential (primary) hypertension, M71.331 - Other bursal cyst, right wrist, R73.03 - Prediabetes, Z91.09 - Other allergy status, other than to drugs and biological substances
--- OUTSIDE RECORDS SUMMARY | 2024-09-29 10:42 | XMS_ITS | Encounter Summary ---
Author Organization [employer] Address [address] [place] [address] Care Team Providers Care Supervisor Home Energy Consultant Name Role Phone Unavailable Primary Care Provider Unavailabl e Encounter Details Date Type Department Care Team (Latest Contact Info) Description 05/24/2019 Abstract C CONVERSIONS Dental, Provider, DDS Social History Tobacco Use Types Packs/Day Years Used Date Smoking Tobacco: Never Assessed Sex and Gender Information Value Date Recorded Sex Assigned at Male 05/06/2022 10:35 AM EDT Legal Sex Male 10:35 AM EDT Gender Identity Male 05/06/2022 10:35 AM EDT Sexual Orientation Choose not to disclose 2021 10:35 AM EDT documented as of this encounter Plan of Treatment Not on file documented as of this encounter Visit Diagnoses Not on filedocumented in this encounter
--- OUTSIDE RECORDS SUMMARY | 2024-09-29 10:42 | XMS_ITS | Clinical Summary ---
Author Organization [employer] Address [address] [facility] [address] [place] [address] Care Team Providers Care Sales Incentive Analyst Name Role Phone Unavailable Primary Care Provider Unavailabl e Social History Tobacco Use Types Packs/Day Years Used Date Smoking Tobacco: Never Assessed Sex and Gender Information Value Date Recorded Sex Assigned at Male 05/06/2022 10:35 AM EDT Legal Sex Male 10:35 AM EDT Gender Identity Male 05/06/2022 10:35 AM EDT Sexual Orientation Choose not to disclose 2021 10:35 AM EDT Last Filed Vital Signs Vital Sign Reading Time Taken Comments Blood Pressure 130/70 06/16/2020 12:12 AM EST Pulse - - Temperature - - Respiratory Rate - - Oxygen Saturation - - Inhaled Oxygen Concentration - - Weight - - Height - - Body Mass Index - - Plan of Treatment Health Maintenance Due Date Last Done Comments Depression Screening 1945 Lipid Panel 1945 Alcohol/Substance Use Screening 1957 Tobacco Screening 1957 DTaP/Tdap/Td Vaccines (1 - Tdap) 02/26/1964 Pneumococcal Vaccine: 50+ Ye ars (1 of 1 - PCV) 1995 Zoster Vaccines (1 of 2) 1995 RSV Patients and Pa tients Aged 60 years or older (1 - 1-dose 75+ series) 02/26/2020 COVID-19 Vaccine ( - 2023-2 5 season) 2024 Influenza Vaccine (#1) 2024 HIB Vaccines Aged Out No longer eligi ble based on patient's age to complete this topic HPV Vaccines Aged Out No longer eligi ble based on patient's age to complete this topic Hepatitis A Vaccines Aged Out No long er eligible based on patient's age to complete this topic Hepatitis B Vaccines Aged Out No long er eligible based on patient's age to complete this topic IPV Vaccines Aged Out No longer eligi ble based on patient's age to complete this topic Meningococcal Vaccine Aged Out No gabby sam eligible based on patient's age to complete this topic RSV under 20 months Aged Out No longe r eligible based on patient's age to complete this topic Rotavirus Vaccines Aged Out No longer eligible based on patient's age to complete this topic
--- OUTSIDE RECORDS SUMMARY | 2024-09-29 10:42 | XMS_ITS | Encounter Summary ---
Author Organization [employer] Address [address] [facility] [address] [place] [address] Care Team Providers Care Automotive Professional Name Role Phone Unavailable Primary Care Provider Unavailabl e Encounter Details Date Type Department Care Team (Latest Contact Info) Description 10/12/2018 Abstract [facility] CONVERSIONS Dental, Provider, DDS Social History Tobacco [...]
--- OUTSIDE RECORDS SUMMARY | 2024-09-29 10:42 | XMS_ITS | Encounter Summary ---
Author Organization [employer] Address [address] [facility] [address] [place] [address] Care Team Providers Care Nut Chopper Name Role Phone Unavailable Primary Care Provider Unavailabl e Encounter Details Date Type Department Care Team (Latest Contact Info) Description 06/08/2020 Abstract C CONVERSIONS Dental, Provider, DDS Social [...]
== END 2024-09-29 09:53 | disposition home or self-care (01) ==
LOC: HO.HMCC 09:35
PROVIDERS: PCP Internal Medicine; Visit Provider Internal Medicine
DX: E78.9 Disorder of lipoprotein metabolism, unspecified (principal); I10 Essential (primary) hypertension; Z91.09 Other allergy status, other than to drugs and biological substances; R73.03 Prediabetes; M71.331 Other bursal cyst, right wrist

== ENCOUNTER → 2024-09-29 09:35 | Outpatient (BNVA) | payer OTHER, SELFPAY | PROVIDERS: PCP Internal Medicine; Visit Provider Internal Medicine | DX: E78.9 Disorder of lipoprotein metabolism, unspecified (principal); I10 Essential (primary) hypertension; R73.03 Prediabetes; M71.331 Other bursal cyst, right wrist; Z91.09 Other allergy status, other than to drugs and biological substances; Z79.899 Other long term (current) drug therapy | CPT/HCPCS: 96127 ==

== ENCOUNTER 2024-10-28 08:04 | Outpatient (REF) | payer OTHER, SELFPAY ==
--- OUTSIDE RECORDS SUMMARY | 2024-10-28 08:15 | XMS_ITS | Encounter Summary ---
Author Organization [employer] Address [address] [facility] 7[address] [place] [address] Care Team Providers Care Instructor Flying Name Role Phone Unavailable Primary Care Provider [...]
--- OUTSIDE RECORDS SUMMARY | 2024-10-28 08:15 | XMS_ITS | Encounter Summary ---
Author Organization [employer] Address [address] [facility] [address] [place] [address] Care Team Providers Care Activities Coordinator Name Role Phone Unavailable Primary Care Provider [...]
--- OUTSIDE RECORDS SUMMARY | 2024-10-28 08:15 | XMS_ITS | Clinical Summary ---
Author Organization [employer] Address [address] [facility] [address] [place] [address] Care Team Providers Care Automation Engineering Technician Name Role Phone Unavailable Primary Care Provider [...]
--- OUTSIDE RECORDS SUMMARY | 2024-10-28 08:15 | XMS_ITS | Encounter Summary ---
Author Organization [employer] Address [address] [facility] [address] [place] [address] Care Team Providers Care Medical Technologist Clinical Name Role Phone Unavailable Primary Care Provider [...]
[2024-10-28 10:16] LABS: MANUAL DIFF FLAG NO
[2024-10-28 10:28] LABS: Estimated Average Glucose 128 mg/dL; Hemoglobin A1C 172.8868 umol/L; Hemoglobin A1c % 6.1 % (<6.0); Total Hemoglobin (HGBA1C) 3968.2296 umol/L
[2024-10-28 10:29] LABS: Basophils Percent Auto 0.5 % (0-2); Eosinophils Absolute Auto 0.2 X10*3/uL (0.0-0.4); Eosinophils Percent Auto 2.5 % (0-4); Hematocrit 44.1 % (42.0-52.0); Imm Gran Abs Auto 0.03 X10*3/uL (0.00-0.03); Imm Gran Pct Auto 0.5 % (0.0-0.4); Lymphocytes Absolute Auto 2.6 X10*3/uL (1.2-4.9); Lymphocytes Percent Auto 40.1 % (20-40); Mean Corpuscular Hemoglobin 29.6 pg (27.0-33.0); Mean Platelet Volume 9.4 fL (9.4-12.4); Monocytes Absolute Auto 0.6 X10*3/uL (0.1-1.2); Monocytes Percent Auto 8.8 % (2-11); Neutrophils Absolute Auto 3.1 x10*3/uL (2.0-8.3); Neutrophils Percent Auto 47.6 % (45-73); Platelet Count 320 X10*3/uL (160-400); Red Blood Count 5.07 X10*6/uL (4.60-5.80); Red Cell Distribution Width 13.1 % (11.0-16.0); White Blood Count 6.5 X10*3/uL (4.8-10.8)
[2024-10-28 11:11] LABS: Alanine Aminotransferase 55 U/L (0-40); Albumin Level 4.3 g/dL (3.5-5.0); Alkaline Phosphatase 56 U/L (39-117); Anion Gap 10 (12-20); Aspartate Amino Transferase 50 U/L (5-37); Bilirubin Total 0.8 mg/dL (0.0-1.0); Blood Urea Nitrogen 14 mg/dL (9-16); Calcium 9.6 mg/dL (8.4-10.2); Carbon Dioxide 29 mmol/L (22-29); Chloride 104 mmol/L (96-108); Cholesterol 159 mg/dL (<200); Estimated Glomerular Filt Rate > 60; Glucose Fasting 101 mg/dL (60-99); HDL Cholesterol 47 mg/dL (>40); LDL Cholesterol Calculated 88 mg/dL (<100); Sodium 139 mmol/L (135-145); Total Protein 8.1 g/dL (6.5-8.0); Triglycerides 124 mg/dL (<150)
[2024-10-28 11:28] LABS: Vitamin B12 585 pg/mL (200-900)
[2024-11-01 14:38] LABS: Vitamin D 25-OH, D2 <4 ng/mL; Vitamin D 25-OH, D3 34 ng/mL; Vitamin D 25-OH, Total 34 ng/mL (30-100)
== END 2024-10-28 08:05 | disposition home or self-care (01) ==
LOC: HO.HMGCLDS 08:04
PROVIDERS: PCP Internal Medicine; Visit Provider Internal Medicine
DX: I10 Essential (primary) hypertension (principal); E78.9 Disorder of lipoprotein metabolism, unspecified; Z91.09 Other allergy status, other than to drugs and biological substances; R79.89 Other specified abnormal findings of blood chemistry; M15.9 Polyosteoarthritis, unspecified; R73.03 Prediabetes; M71.331 Other bursal cyst, right wrist
CPT/HCPCS: 36415; 80053; 80061; 82306; 82607; 83036; 85025

== ENCOUNTER 2024-12-31 08:56 | Outpatient (AMB) | payer OTHER, SELFPAY ==
[2024-12-31 09:04] VITALS: BP 138/86; PULSE 73; TEMP 36.6; O2SAT 94; BMI 25.8
--- NOTE | 2024-12-31 09:04 | A.OFFPC_ITS ---
Vital Signs 12/31/24 09:04 Height 5 ft 7 in Weight 165 lb BMI 25.8 BP 138/86 Blood Pressure Location Lt brachial Position Sitting Pulse 73 Pulse Source Pulse Oximeter Temp 97.8 F Temp Source Temporal Artery Scan Pulse Oximetry (%) 94 Oxygen Delivery Method Room Air Intake Visit Reasons: 3m follow up Allergies No Known Allergies Allergy (Verified 12/31/24 09:05) Medication List - Last Reconciled 12/31/24 by Lora Rojo MD acetaminophen (Tylenol Extra Strength) 500 mg PO BID PRN 90 days aspirin 81 mg PO DAILY 90 days lisinopril 40 mg PO DAILY 90 days simvastatin 20 mg PO DAILY 90 days Tobacco use date assessed: 12/31/24 Fall risk assessment: No Falls in past year Last assessed Fall Risk: 12/31/24 Dental Screening Dental Screen Date: 09/29/24 Did you have a dental visit in the last 12 months?: Yes Did you have a dental problem in the last 6 months where you did not have access to dental care?: No Was dental information given to patient?: Patient has dentist HPI 3m follow up HPI Details History - The patient is a 79-year-old male pres enting with a routine check-up and monitoring of prediabetes and liver enzyme levels. - Prediabetes: The patient has been diag nosed with prediabetes, and his blood sugar levels are currently stable. - Elevated liver enzymes: Previous lab t ests indicated slightly elevated liver enzymes, necessitating ongoing monitoring. - Cyst: The patient has a cyst that occa sionally fluctuates in size, right wrist, with no significant discomfort reported. Problem List - Prediabetes - Elevated liver enzymes - Cyst right hand - OA multiple joints - HTN stable - Lipid disorder Patient Instructions - Continue monitoring blood sugar levels and maintain a balanced diet to manage prediabetes. - Avoid sugary drinks like soda to help control blood sugar levels. - Follow up with blood tests before the next visit to monitor liver enzyme levels. - continue meds for lipid and Bp, tyleno l send for pain managment joints Review of Systems - General: No fever no chills - Neurological: No headaches no dizziness - Ear nose throat: No sore throat no hearing difficulty no ear pain - Cardiovascular: No syncope, no chest pain, no palpitations - Gastrointestinal: No nausea vomiting or diarrhea - Endocrine: No polyuria polydipsia no heat intolerance - Genitourinary: No dysuria , no blood in urine Physical Exam General: No acute distress HEENT: Swelling of the face noted Neck: Supple Respiratory system: Able to talk in full sentences, no audible wheeze Cardiovascular: S1-S2 regular in rate and rhythm Gastrointestinal: No pain, but sometimes experiences bloating Extremities: No new findings SPOUTING INSTALLER: Alert awake oriented x3 motor sensory intact Skin: Normal turgor [facility] Social History Housing: Apartment Patient Tobacco Use Status: Former Tobacco user Years Smoked: 1 yr e-Cigarette/Vaping Use: Never Used service: No Current occupational status: retired Cognitive needs: No Hearing needs: No Vision needs: No Questionnaire PHQ-9 Over the last 2 weeks, how often have you been bothered by any of the following problems? 64095 - PHQ-9 Billing: Patient declined-do not bill Source: Developed by Drs. Leandro Castillo, Rosa Smith, Mason Banda and colleagues, with an educational jonathan from [employer]. Thrive Questionnaire Date Thrive assessed: 09/29/24 I am a: Patient What is your living situation today?: I have a steady place to live Within the past 12 months, did the food you bought not last and you didn't have the money to get more?: Never true Within the past 12 months, did you worry whether your food would run out before you got money to buy more?: Never true Do you have trouble paying for medicines?: No Do you have trouble getting transportation to medical appointments?: No Do you have trouble paying your heating and electricity bill?: No Do you have trouble taking care of your child, family member or friend?: No Do you have trouble with day-to-day activities such as bathing, preparing meals, shopping, managing finances, etc.?: No Are you currently unemployed and looking for a job?: No Are you interested in more education?: No Please select the resources that you would like help with: None Currently or been in a relationship where the following occur: No concerns reported THRIVE Score: 0 AUDIT C Alcohol Use Questionnaire (AUDIT-C) 1. How often do you have a drink containing alcohol?: Never 3. How often do you have six or more drinks on one occasion?: Never Total Score: 0 Score Reviewed/Action Taken: Yes ISAMAR-7 AMB Questionnaire ISAMAR-7 Date ISAMAR - 7 assessed: 09/29/24 Feeling nervous, anxious, or on edge: 0 = Not at all Not being able to stop or control worryin = Not at all Worrying too much about different things: 0 = Not at all Trouble relaxin = Not at all Being so restless that it is hard to sit still: 0 = Not at all Becoming easily annoyed or irritable: 0 = Not at all Feeling afraid as if something awful might happen: 0 = Not at all Total ISAMAR-7 score (0-4 normal; 5-9 mild; 10-14 moderate; 15-21 severe): 0 Source: Developed by Drs. Leandro Castillo, Rosa Smith, Mason Banda and colleagues, with an educational jonathan from [employer]. Physical exam (Primary Care) Vital Signs: Last Vital Signs Temp 97.8 F 12/31/24 09:04 Pulse 73 12/31/24 09:04 BP 138/86 12/31/24 09:04 Pulse Ox 94 12/31/24 09:04 Oxygen Delivery Method Room Air 12/31/24 09:04 BMI result Body Mass Index 25.8 Tobacco/Smoking Status: Tobacco use Status Tobacco use date assessed 12/31/24 12/31/24 09:07 Patient Tobacco Use Status Former Tobacco user 12/31/24 09:07 e-Cigarette/Vaping Use Never Used 12/31/24 09:07 Thrive Assessment: Date of Thrive Assessment Date Thrive assessed 09/29/24 12/31/24 09:07 Currently or been in a relationship where the following occur: No concerns reported Coding Level of Care Code Est Pt Level 4 (85884) Diagnoses Hypertension, essential I10 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 Pre-diabetes R73.03 Environmental allergies Z91.09 Hearing difficulty, unspecified laterality H91.90 Laterality: unspecified laterality LFT elevation R79.89 Osteoarthritis involving multiple joints on both sides of body M15.9 Synovial cyst of right wrist 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 Assessment & Plan Assessment & Plan (1) Hypertension, essential: Code(s): I10 - Essential (primary) hypertension Category: Medical (2) Lipid disorder: Code(s): E78.9 - Disorder of lipoprotein metabolism, unspecified Category: Medical (3) Pre-diabetes: Code(s): R73.03 - Prediabetes Category: Medical (4) Environmental allergies: Code(s): Z91.09 - Other allergy status, other than to drugs and biological substances Category: Medical (5) Difficulty hearing: Code(s): H91.90 - Unspecified hearing loss, unspecified ear Category: Medical Qualifiers: Laterality: unspecified laterality Qualified Code(s): H91.90 - Unspecified hearing loss, unspecified ear (6) LFT elevation: Code(s): R79.89 - Other specified abnormal findings of blood chemistry Category: Medical (7) Osteoarthritis involving multiple joints on both sides of body: Code(s): M15.9 - Polyosteoarthritis, unspecified Category: Medical (8) Synovial cyst of right wrist: Code(s): M71.331 - Other bursal cyst, right wrist Category: Medical Plan f/u apt, on going care visit - The patient is a 79-year-old male presenting with a routine check-up and monitoring of prediabetes and liver enzyme levels. - Prediabetes: The patient has been diagnosed with prediabetes, and his blood sugar levels are currently stable. - Elevated liver enzymes: Previous lab tests indicated slightly elevated liver enzymes, necessitating ongoing monitoring. - Cyst: The patient has a cyst that occasionally fluctuates in size, right wrist, with no significant discomfort reported. Problem List - Prediabetes - Elevated liver enzymes - Cyst right hand - OA multiple joints - HTN stable - Lipid disorder Patient Instructions - Continue monitoring blood sugar levels and maintain a balanced diet to manage prediabetes. - Avoid sugary drinks like soda to help control blood sugar levels. - Follow up with blood tests before the next visit to monitor liver enzyme levels. - continue meds for lipid and Bp, tylenol send for pain managment joints Orders: Orders Hemoglobin A1c 3 Months E78.9 - Disorder of lipoprotein metabolism, unspe cified, H91.90 - Unspecified hearing loss, unspecified ear, I10 - Essential (primary) hypertension, M15.9 - Polyosteoarthritis, unspecified, M71.331 - Other bursal cyst, right wrist, R73.03 - Prediabetes, R79.89 - Other specified abnormal findings of blood chemistry, Z91.09 - Other allergy status, other than to drugs and biological substances Complete Blood Count Auto Diff 3 Months E78.9 - Disorder of lipoprotein metabolism, unspecified, H91.90 - Unspecified hearing loss, unspecified ear, I10 - Essential (primary) hypertension, M15.9 - Polyosteoarthritis, unspecified, M71.331 - Other bursal cyst, right wrist, R73.03 - Prediabetes, R79.89 - Other specified abnormal findings of blood chemistry, Z91.09 - Other allergy status, other than to drugs and biological substances Comprehensive [place]. Panel Fast 3 Months E78.9 - Disorder of lipoprotein metabolism, unspecified, H91.90 - Unspecified hearing loss, unspecified ear, I10 - Essential (primary) hypertension, M15.9 - Polyosteoarthritis, unspecified, M71.331 - Other bursal cyst, right wrist, R73.03 - Prediabetes, R79.89 - Other specified abnormal findings of blood chemistry, Z91.09 - Other allergy status, other than to drugs and biological substances Vitamin B12 3 Months E78.9 - Disorder of lipoprotein metabolism, unspecified, H91.90 - Unspecified hearing loss, unspecified ear, I10 - Essential (primary) hypertension, M15.9 - Polyosteoarthritis, unspecified, M71.331 - Other bursal cyst, right wrist, R73.03 - Prediabetes, R79.89 - Other specified abnormal findings of blood chemistry, Z91.09 - Other allergy status, other than to drugs and biological substances Lipid Panel 3 Months E78.9 - Disorder of lipoprotein metabolism, unspecified, H91.90 - Unspecified hearing loss, unspecified ear, I10 - Essential (primary) hypertension, M15.9 - Polyosteoarthritis, unspecified, M71.331 - Other bursal cyst, right wrist, R73.03 - Prediabetes, R79.89 - Other specified abnormal findings of blood chemistry, Z91.09 - Other allergy status, other than to drugs and biological substances Vitamin D 25-OH (D2 and D3) 3 Months E78.9 - Disorder of lipoprotein metabolism, unspecified, H91.90 - Unspecified hearing loss, unspecified ear, I10 - Essential (primary) hypertension, M15.9 - Polyosteoarthritis, unspecified, M71.331 - Other bursal cyst, right wrist, R73.03 - Prediabetes, R79.89 - Other specified abnormal findings of blood chemistry, Z91.09 - Other allergy status, other than to drugs and biological substances TSH reflex Free T4 3 Months E78.9 - Disorder of lipoprotein metabolism, unspecified, H91.90 - Unspecified hearing loss, unspecified ear, I10 - Essential (primary) hypertension, M15.9 - Polyosteoarthritis, unspecified, M71.331 - Other bursal cyst, right wrist, R73.03 - Prediabetes, R79.89 - Other specified abnormal findings of blood chemistry, Z91.09 - Other allergy status, other than to drugs and biological substances Medications: Refilled acetaminophen (Tylenol Extra Strength) 500 mg PO BID 90 days PRN 180 ea 1RF Joint pains simvastatin 20 mg PO DAILY 90 days 90 tabs 1RF lisinopril 40 mg PO DAILY 90 tabs 1RF 90 days simvastatin 20 mg PO DAILY 90 tabs 1RF 90 days aspirin 81 mg PO DAILY 90 days 90 tabs 3RF lisinopril 40 mg PO DAILY 90 days 90 tabs 1RF acetaminophen (Tylenol Extra Strength) 500 mg PO BID PRN 180 ea 1RF Joint pains 90 days aspirin 81 mg PO DAILY 90 tabs 3RF 90 days
--- OUTSIDE RECORDS SUMMARY | 2024-12-31 09:12 | XMS_ITS | Encounter Summary ---
Author Organization [employer] [facility] Address [address] [facility] [address] [place] [address] Care Team Providers Care Manager Of Case Name Role Phone Unavailable Primary Care Provider Unavailabl e Encounter Details Date Type Department Care Team (Latest Contact Info) Description 10/12/2018 Abstract C CONVERSIONS Dental, Provider, DDS Social [...]
== END 2024-12-31 09:31 | disposition home or self-care (01) ==
LOC: HO.HMCC 08:56
PROVIDERS: PCP Internal Medicine; Visit Provider Internal Medicine
DX: I10 Essential (primary) hypertension (principal); E78.9 Disorder of lipoprotein metabolism, unspecified; R73.03 Prediabetes; Z91.09 Other allergy status, other than to drugs and biological substances; H91.90 Unspecified hearing loss, unspecified ear; R79.89 Other specified abnormal findings of blood chemistry; M15.9 Polyosteoarthritis, unspecified; M71.331 Other bursal cyst, right wrist

== ENCOUNTER → 2024-12-31 08:56 | Outpatient (BNVA) | payer OTHER, SELFPAY | PROVIDERS: PCP Internal Medicine; Visit Provider Internal Medicine | DX: Z13.89 Encounter for screening for other disorder (principal) ==

== ENCOUNTER → 2025-04-01 09:22 | Outpatient (BNVA) | payer OTHER, SELFPAY | PROVIDERS: PCP Internal Medicine; Visit Provider Internal Medicine | DX: I10 Essential (primary) hypertension (principal); M47.816 Spondylosis without myelopathy or radiculopathy, lumbar region; R73.03 Prediabetes; M15.9 Polyosteoarthritis, unspecified | CPT/HCPCS: 96127 ==

== ENCOUNTER 2025-04-01 09:39 | Outpatient (AMB) | payer OTHER, SELFPAY ==
--- NOTE | 2025-04-01 09:41 | A.OFFPC_ITS ---
Vital Signs 04/01/25 09:42 Height 5 ft 7 in Weight 157 lb BMI 24.6 BP 140/82 H Blood Pressure Location Rt brachial Position Sitting Pulse 80 Pulse Source Pulse Oximeter Pulse Oximetry (%) 96 Intake Visit Reasons: follow up Allergies No Known Allergies Allergy (Verified 04/01/25 09:43) Medication List - Last Reconciled 04/01/25 by Lora Rojo MD acetaminophen (Tylenol Extra Strength) 500 mg PO BID PRN 90 days aspirin 81 mg PO DAILY 90 days lisinopril 40 mg PO DAILY 90 days simvastatin 20 mg PO DAILY 90 days Tobacco use date assessed: 12/31/24 Fall risk assessment: No Falls in past year Last assessed Fall Risk: 04/01/25 Dental Screening Dental Screen Date: 09/29/24 HPI follow up HPI Details History of Present Illness The patient is an 80-year-old male presenting with elevated blood pressure and lower back pain . Essential Hypertension: - The patient reports that his blood pre ssure was noted to be slightly elevated during the visit. - It was suggested that the elevation mi ght be due to rushing prior to the appointment. - He does not regularly check his blood pressure at home as there is no machine available. lower back pain : - The patient reports left side lower ba ck pain attributed to arthritis. - The pain is described as aching and is not constant; it fluctuates in intensity. - He currently manages the pain with ove [id number] Tylenol. - The pain worsens during cold weather. - There was a mention of possibly using NSAIDs such as Aleve for more severe pain. Medications: - Lisinopril 40 mg for blood pressure - Simvastatin 20 mg for lipid control - Tylenol for arthritis pain Diagnostic Results: - Labs from October indicate normal kidney function. Problem List - Essential Hypertension - LBP - Lipid disorder Patient Instructions - Monitor blood pressure to ensure it re adilia below 140 mmHg. - Take Aleve for lower back pain if it w orsens; ensure to take with food and maintain a 12-hour interval if an additional dose is needed. - Aleve can be taken in conjunction with Tylenol if necessary. - Follow up with scheduled lab work and physical examination in June. Review of Systems - General: No fever no chills - Neurological: No headaches no dizziness - Ear nose throat: No sore throat no hearing difficulty no ear pain - Cardiovascular: No syncope, no chest pain, no palpitations - Gastrointestinal: No nausea vomiting or diarrhea Physical Exam General: No acute distress HEENT: No acute findings Neck: Supple Respiratory system: Lungs are good, able to talk in full sentences, no audible wheeze Cardiovascular: S1-S2 regular in rate and rhythm Gastrointestinal: No pain back : no pain with percussion lumber, pain located over left paraspinal area Extremities: No new findings [employer]: Alert awake oriented x3 motor intact Skin: Normal turgor PFSH Social History Housing: Apartment Patient Tobacco Use Status: Former Tobacco user Years Smoked: 1 yr e-Cigarette/Vaping Use: Never Used service: No Current occupational status: retired Cognitive needs: No Hearing needs: No Vision needs: No Questionnaire PHQ-9 Over the last 2 weeks, how often have you been bothered by any of the following problems? 1. Little interest or pleasure in doing things: not at all 2. Feeling down, depressed, or hopeless: not at all 3. Trouble falling or staying asleep, or sleeping too much: not at all 4. Feeling tired or having little energy: not at all 5. Poor appetite or overeating: not at all 6. Feeling bad about yourself - or that you are a failure or have let yourself or your family down: not at all 7. Trouble concentrating on things, such as reading the newspaper or watching television: not at all 8. Moving or speaking so slowly that other people could have noticed. Or the opposite - being so fidgety or restless that you have been moving around a lot more than usual: not at all 9. Thoughts that you would be better off or of hurting yourself in some way: not at all Total score: 0 Depression Screening Interpretation: Negative Depression Screening Done: Yes 29140 - PHQ-9 Billing: Yes Source: Developed by Drs. Leandro Castillo, Rosa Smith, Mason Banda and colleagues, with an educational jonathan from [employer]. Thrive Questionnaire Date Thrive assessed: 04/01/25 I am a: Patient What is your living situation today?: I have a steady place to live Within the past 12 months, did the food you bought not last and you didn't have the money to get more?: Never true Within the past 12 months, did you worry whether your food would run out before you got money to buy more?: Never true Do you have trouble paying for medicines?: No Do you have trouble getting transportation to medical appointments?: No Do you have trouble paying your heating and electricity bill?: No Do you have trouble taking care of your child, family member or friend?: No Do you have trouble with day-to-day activities such as bathing, preparing meals, shopping, managing finances, etc.?: No Are you currently unemployed and looking for a job?: No Are you interested in more education?: No Please select the resources that you would like help with: None Currently or been in a relationship where the following occur: No concerns reported THRIVE Score: 0 AUDIT C Alcohol Use Questionnaire (AUDIT-C) 1. How often do you have a drink containing alcohol?: Never 3. How often do you have six or more drinks on one occasion?: Never Total Score: 0 Score Reviewed/Action Taken: Yes ISAMAR-7 AMB Questionnaire ISAMAR-7 Date ISAMAR - 7 assessed: 04/01/25 Feeling nervous, anxious, or on edge: 0 = Not at all Not being able to stop or control worryin = Not at all Worrying too much about different things: 0 = Not at all Trouble relaxin = Not at all Being so restless that it is hard to sit still: 0 = Not at all Becoming easily annoyed or irritable: 0 = Not at all Feeling afraid as if something awful might happen: 0 = Not at all Total ISAMAR-7 score (0-4 normal; 5-9 mild; 10-14 moderate; 15-21 severe): 0 Source: Developed by Drs. Leandro Castillo, Rosa Smith, Mason Banda and colleagues, with an educational jonathan from [employer]. ISAMAR-7 Assessment Billing ISAMAR-7 Assessment Tool: ISAMAR-7 Assessment 75355 Physical exam (Primary Care) Vital Signs: Last Vital Signs Pulse 80 04/01/25 09:42 BP 140/82 H 04/01/25 09:42 Pulse Ox 96 04/01/25 09:42 BMI result Body Mass Index 24.6 Tobacco/Smoking Status: Tobacco use Status Tobacco use date assessed 12/31/24 04/01/25 09:43 Patient Tobacco Use Status Former Tobacco user 04/01/25 09:43 e-Cigarette/Vaping Use Never Used 04/01/25 09:43 PHQ-9: PHQ-9 Score PHQ-9: Total score 0 04/01/25 09:52 Depression Screening Interpretation: Negative Thrive Assessment: Date of Thrive Assessment Date Thrive assessed 04/01/25 04/01/25 09:43 Currently or been in a relationship where the following occur: No concerns reported Coding Level of Care Code Est Pt Level 3 (17725) Diagnoses Hypertension, essential I10 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 Pre-diabetes R73.03 Osteoarthritis involving multiple joints on both sides of body M15.9 Additional Codes ISAMAR-7 Assessment Billing - ISAMAR-7 Assessment Tool: ISAMAR-7 Assessment 92311 ([id number]) PHQ-9 - 14174 - PHQ-9 Billing: Yes ([id number]) Assessment & Plan Assessment & Plan (1) Hypertension, essential: Code(s): I10 - Essential (primary) hypertension Category: Medical (2) Lipid disorder: Code(s): E78.9 - Disorder of lipoprotein metabolism, unspecified Category: Medical (3) Pre-diabetes: Code(s): R73.03 - Prediabetes Category: Medical (4) Osteoarthritis involving multiple joints on both sides of body: Code(s): M15.9 - Polyosteoarthritis, unspecified Category: Medical Plan History of Present Illness The patient is an 80-year-old male presenting with elevated blood pressure and lower back pain . Essential Hypertension: - The patient reports that his blood pressure was noted to be slightly elevated during the visit. - It was suggested that the elevation might be due to rushing prior to the appointment. - He does not regularly check his blood pressure at home as there is no machine available. lower back pain : - The patient reports left side lower back pain attributed to arthritis. - The pain is described as aching and is not constant; it fluctuates in intensity. - He currently manages the pain with [id number] Tylenol. - The pain worsens during cold weather. - There was a mention of possibly using NSAIDs such as Aleve for more severe pain. Medications: - Lisinopril 40 mg for blood pressure - Simvastatin 20 mg for lipid control - Tylenol for arthritis pain Diagnostic Results: - Labs from October indicate normal kidney function. Problem List - Essential Hypertension - LBP - Lipid disorder Patient Instructions - Monitor blood pressure to ensure it remains below 140 mmHg. - Take Aleve for lower back pain if it worsens; ensure to take with food and maintain a 12-hour interval if an additional dose is needed. - Aleve can be taken in conjunction with Tylenol if necessary. - Follow up with scheduled lab work and physical examination in June. Medications: New naproxen 500 mg PO BID PRN 60 tabs 0RF pain 30 days
[2025-04-01 09:42] VITALS: BP 140/82; PULSE 80; O2SAT 96; BMI 24.6
--- OUTSIDE RECORDS SUMMARY | 2025-04-01 10:09 | XMS_ITS | Encounter Summary ---
Author Organization [employer] [facility] Address [address] [place] [address] Care Team Providers Care Fur Trimmer Name Role Phone Unavailable Primary Care Provider [...]
--- OUTSIDE RECORDS SUMMARY | 2025-04-01 10:09 | XMS_ITS | Clinical Summary ---
Author Organization [employer] Address [address] [place] [address] Care Team Providers Care Master Fisher Name Role Phone Unavailable Primary Care Provider [...] COVID-19 Vaccine ( - 2023-2 5 season) 2025 Influenza Vaccine (#1) 2025 HIB Vaccines Aged Out No longer eligi [...] patient's age to complete this topic Meningococcal B Vaccine Aged Out No l onger eligible based on patient's age to complete [...]
--- OUTSIDE RECORDS SUMMARY | 2025-04-01 10:09 | XMS_ITS | Encounter Summary ---
Author Organization [employer] [facility] Address [address] [place] [address] Care Team Providers Care Cardiology Clinical Consultant Name Role Phone Unavailable Primary Care [...]
--- OUTSIDE RECORDS SUMMARY | 2025-04-01 10:09 | XMS_ITS | Encounter Summary ---
Author Organization [employer] [facility] Address [address] [place] [address] Care Team Providers Care Needle Straightener Name Role Phone Unavailable Primary Care Provider [...]
== END 2025-04-01 09:58 | disposition home or self-care (01) ==
PROVIDERS: PCP Internal Medicine; Visit Provider Internal Medicine
DX: I10 Essential (primary) hypertension (principal); E78.9 Disorder of lipoprotein metabolism, unspecified; R73.03 Prediabetes; M15.9 Polyosteoarthritis, unspecified

== ENCOUNTER 2025-06-18 07:05 | Outpatient (REF) | payer OTHER, SELFPAY ==
--- OUTSIDE RECORDS SUMMARY | 2025-06-18 07:09 | XMS_ITS | Encounter Summary ---
Author Organization [employer] [facility] Address [address] [place] [address] Care Team Providers Care Public School Teacher Name Role Phone Unavailable Primary Care Provider [...]
--- OUTSIDE RECORDS SUMMARY | 2025-06-18 07:09 | XMS_ITS | Encounter Summary ---
Author Organization [employer] [facility] Address [address] [place] [address] Care Team Providers Care Tank Builder And Erector Name Role Phone Unavailable Primary Care Provider [...]
--- OUTSIDE RECORDS SUMMARY | 2025-06-18 07:09 | XMS_ITS | Encounter Summary ---
Author Organization [employer] [facility] Address [address] [place] [address] Care Team Providers Care Torch Solderer Name Role Phone Unavailable Primary Care Provider [...]
--- OUTSIDE RECORDS SUMMARY | 2025-06-18 07:09 | XMS_ITS | Clinical Summary ---
Author Organization [employer] Address [address] [place] [address] Care Team Providers Care Board Operator Name Role Phone Unavailable Primary Care Provider [...] 75+ series) 02/26/2020 COVID-19 Vaccine ( - 2024-2 6 season) 2025 Influenza Vaccine (#1) 2025 HIB [...]
[2025-06-18 11:35] LABS: MANUAL DIFF FLAG NO
[2025-06-18 11:48] LABS: Hematocrit 45.2 % (42.0-52.0); Hemoglobin 15.2 g/dl (14.0-18.0); Imm Gran Abs Auto 0.06 X10*3/uL (0.00-0.03); Imm Gran Pct Auto 0.9 % (0.0-0.4); Lymphocytes Absolute Auto 2.3 X10*3/uL (1.2-4.9); Mean Corpuscular HGB Conc 33.6 g/dl (31.0-36.0); Mean Corpuscular Hemoglobin 30.3 pg (27.0-33.0); Mean Corpuscular Volume 90.2 fL (80.0-98.0); NRBC Abs Auto 0.000 X10*3/uL (0.0-0.012); NRBC Pct Auto 0.0 /100WBC (0.0-0.2); Platelet Count 349 X10*3/uL (160-400); Red Blood Count 5.01 X10*6/uL (4.60-5.80); White Blood Count 6.9 X10*3/uL (4.8-10.8)
[2025-06-18 12:05] LABS: Alanine Aminotransferase 38 U/L (0-40); Albumin Level 4.5 g/dL (3.5-5.0); Alkaline Phosphatase 54 U/L (39-117); Anion Gap 11 (12-20); Aspartate Amino Transferase 44 U/L (5-37); Blood Urea Nitrogen 18 mg/dL (9-16); Calcium 9.4 mg/dL (8.4-10.2); Carbon Dioxide 28 mmol/L (22-29); Chloride 104 mmol/L (96-108); Cholesterol 190 mg/dL (<200); Estimated Glomerular Filt Rate > 60; HDL Cholesterol 43 mg/dL (>40); Potassium 3.9 mmol/L (3.3-5.1); Sodium 139 mmol/L (135-145); Total Protein 8.1 g/dL (6.5-8.0); Triglycerides 110 mg/dL (<150)
[2025-06-18 12:24] LABS: Vitamin B12 379 pg/mL (200-900)
== END 2025-06-18 07:06 | disposition home or self-care (01) ==
LOC: HO.HMGCLDS 07:05
PROVIDERS: PCP Internal Medicine; Visit Provider Internal Medicine
DX: I10 Essential (primary) hypertension (principal); E78.9 Disorder of lipoprotein metabolism, unspecified; H91.90 Unspecified hearing loss, unspecified ear; M15.9 Polyosteoarthritis, unspecified; M71.331 Other bursal cyst, right wrist; R73.03 Prediabetes; R79.89 Other specified abnormal findings of blood chemistry; Z91.09 Other allergy status, other than to drugs and biological substances; Z13.21 Encounter for screening for nutritional disorder
CPT/HCPCS: 36415; 80053; 80061; 82306; 82607; 83036; 84443; 85025

== ENCOUNTER 2025-06-22 10:44 | Outpatient (AMB) | payer OTHER, SELFPAY ==
[2025-06-22 10:45] VITALS: BP 132/80; PULSE 66; O2SAT 95; BMI 25.5
--- NOTE | 2025-06-22 10:45 | A.OFFPC_ITS ---
Vital Signs 06/22/25 10:45 Height 5 ft 7 in Weight 163 lb BMI 25.5 BP 132/80 Blood Pressure Location Lt brachial Position Sitting Pulse 66 Pulse Source Pulse Oximeter Pulse Oximetry (%) 95 Intake Visit Reasons: Annual PE Allergies No Known Allergies Allergy (Verified 06/22/25 10:45) Medication List - Last Reconciled 06/22/25 by Lora Rojo MD acetaminophen (Tylenol Extra Strength) 500 mg PO BID PRN 90 days aspirin 81 mg PO DAILY 90 days lisinopril 40 mg PO DAILY 90 days naproxen 500 mg PO BID PRN 30 days simvastatin 20 mg PO DAILY 90 days Tobacco use date assessed: 12/31/24 Fall risk assessment: No Falls in past year Last assessed Fall Risk: 06/22/25 Dental Screening Dental Screen Date: 09/29/24 HPI HPI Comments History of Present Illness Details History of Present Illness The patient is an 80 year old male presenting for a Physical exam and review of recent lab results. General Health: - The patient is doing well for his age and has a history of being active and performing physical work throughout his life, which is noted as a reason for his current strength. Hypertension: - The patient is on lisinopril for hyper tension. - His blood pressure was recently measur ed at 132/80 mmHg. Hyperlipidemia: - The patient takes simvastatin for chol esterol management. - Recent lab results showed an LDL of 12 5. Medical History: - Hypertension - Hyperlipidemia Social History: - Functional Status: The patient is desc ribed as doing very well for his age and remains strong. - Activity Level: He has a history of be ing active his entire life with physical work. - Nutrition: Reports eating well. - Sleep: Reports sleeping well. Health Maintenance - The patient takes daily aspirin. - dont want any other preventive care Medications - Lisinopril - Simvastatin - [facility]in [facility] Social History Housing: Apartment Patient Tobacco Use Status: Former Tobacco user Years Smoked: 1 yr e-Cigarette/Vaping Use: Never Used service: No Current occupational status: retired Cognitive needs: No Hearing needs: No Vision needs: No Questionnaire Thrive Questionnaire Date Thrive assessed: 04/01/25 ISAMAR-7 AMB Questionnaire ISAMAR-7 Date ISAMAR - 7 assessed: 04/01/25 Source: Developed by Drs. Leandro Castillo, Rosa Smith, Mason Banda and colleagues, with an educational jonathan from [employer]. Review of Systems Narrative Review of Systems - Neurological: No headaches no dizziness - Ear nose throat: No sore throat no hearing difficulty no ear pain - Cardiovascular: No syncope, no chest pain, no palpitations - Gastrointestinal: No nausea vomiting or diarrhea - Endocrine: No polyuria polydipsia no heat intolerance - Genitourinary: No dysuria - Skin: No new complaints Physical exam (Primary Care) Vital Signs: Last Vital Signs Pulse 66 06/22/25 10:45 BP 132/80 06/22/25 10:45 Pulse Ox 95 06/22/25 10:45 BMI result Body Mass Index 25.5 Tobacco/Smoking Status: Tobacco use Status Tobacco use date assessed 12/31/24 06/22/25 10:45 Patient Tobacco Use Status Former Tobacco user 06/22/25 10:45 e-Cigarette/Vaping Use Never Used 06/22/25 10:45 Thrive Assessment: Date of Thrive Assessment Date Thrive assessed 04/01/25 06/22/25 10:45 Narrative Diagnostic results - Vitals: Blood pressure 132/80 mmHg. - Labs: Recent blood tests were reviewed. - CBC: Normal, with no evidence of anemia. - CMP: Electrolytes and kidney functions are normal. - Fasting glucose: Mildly elevated. - Liver function test: Liver enzymes are normal. - Lipid panel: LDL is 125. - TSH: Thyroid function is normal. Physical Exam General: Cooperative, healthy appearing, comfortable, no acute distress Head: Normal to inspection Ears: Within normal limit visually Nose: Normal external nose present Face and sinus: Normal facial exam Eyes: Appearance normal, extraocular movement intact pupils reactive Neck: Normal visual inspection and supple Respiratory: Normal respiratory effort and able to speak in complete sentences. Clear to auscultation, no stridor Cardiovascular: S1 and S2 RRR, blood pressure 132/80 GI: Normal to inspection. Soft to palpation and nontender, no pain in the belly, no constipation Skin: turgor normal, no acute findings Neuro: Patient oriented x3, motor sensory intact, balance intact, tandem pass Extremities: Normal to inspection, right hand cyst is better . Coding Level of Care Code Est Pt Level 3 (55198) Est Pt Prev Care >65y(87638) Diagnoses Encounter for general adult medical examination with abnormal findings Z00.01 Hypertension, essential I10 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 Pre-diabetes R73.03 Osteoarthritis involving multiple joints on both sides of body M15.9 Assessment & Plan Assessment & Plan (1) Encounter for general adult medical examination with abnormal findings: Code(s): Z00.01 - Encounter for general adult medical examination with abnormal findings Category: Medical (2) Hypertension, essential: Code(s): I10 - Essential (primary) hypertension Category: Medical (3) Lipid disorder: Code(s): E78.9 - Disorder of lipoprotein metabolism, unspecified Category: Medical (4) Pre-diabetes: Code(s): R73.03 - Prediabetes Category: Medical (5) Osteoarthritis involving multiple joints on both sides of body: Code(s): M15.9 - Polyosteoarthritis, unspecified Category: Medical Plan Patient Instructions - continue with medications - monitor cyst of right hand - diet control for pre diabetes f.u 3 M
--- OUTSIDE RECORDS SUMMARY | 2025-06-22 13:46 | XMS_ITS | Encounter Summary ---
Author Organization [employer] [facility] Address [address] [place] [address] Care Team Providers Care Will Call Order Clerk Name Role Phone Unavailable Primary Care Provider [...]
--- OUTSIDE RECORDS SUMMARY | 2025-06-22 13:46 | XMS_ITS | Encounter Summary ---
Author Organization [employer] [facility] Address [address] [place] [address] Care Team Providers Care Shuttle Car Operator Name Role Phone Unavailable Primary Care [...]
--- OUTSIDE RECORDS SUMMARY | 2025-06-22 13:46 | XMS_ITS | Clinical Summary ---
Author Organization [employer] Address [address] [place] [address] Care Team Providers Care Coin Teller Name Role Phone Unavailable Primary Care Provider [...]
--- OUTSIDE RECORDS SUMMARY | 2025-06-22 13:46 | XMS_ITS | Encounter Summary ---
Author Organization [employer] [facility] Address [address] [place] [address] Care Team Providers Care Office Aide Name Role Phone Unavailable Primary Care Provider [...]
== END 2025-06-22 11:52 | disposition home or self-care (01) ==
LOC: HO.HMCC 10:44
PROVIDERS: PCP Internal Medicine; Visit Provider Internal Medicine
DX: Z00.01 Encounter for general adult medical examination with abnormal findings (principal); I10 Essential (primary) hypertension; E78.9 Disorder of lipoprotein metabolism, unspecified; R73.03 Prediabetes; M15.9 Polyosteoarthritis, unspecified